=== PATIENT | female | born 1980 | race Caucasian/White ===

== ENCOUNTER 2019-10-07 16:00 | Outpatient (CLI) | payer OTHER, SELFPAY ==
[2019-10-07] VITALS (7 sets, daily range): BP systolic 0–138; BP diastolic 0–83; PULSE 62–75; RESP 17; TEMP 36.8; BMI 31.4
[2019-10-07 16:45] LABS: Nitrazine Paper, PH Negative
== END 2019-10-07 18:23 | disposition home or self-care (01) ==
LOC: OPOB 16:26 → OBGYN 18:12 → OPOB 10-08 07:46
PROVIDERS: Family Provider Family Medicine; Visit Provider Family Medicine
DX: O26.899 Other specified pregnancy related conditions, unspecified trimester (principal); Z3A.00 Weeks of gestation of pregnancy not specified; R10.9 Unspecified abdominal pain
CPT/HCPCS: 59025; 83986; 87081; 99211

== ENCOUNTER 2019-10-30 12:34 | Inpatient (IN) | payer OTHER, SELFPAY ==
[2019-10-30] VITALS (58 sets, daily range): BP systolic 0–153; BP diastolic 0–90; PULSE 57–101; RESP 18; TEMP 36.7–37.1; O2SAT 100; BMI 31.7
[2019-10-30] MEDS: oxytocin 30 UNIT/500 ML BAG IV (14:31)
[2019-10-30] MEDS: dextrose 5%-lactated ringers 1,000 ML 125 ML IV (14:31)
[2019-10-30 14:59] LABS: Basophils % 0.3 %; Eosinophils # 0.3 10^3/uL (0.0-0.8); Eosinophils % 2.8 %; Hematocrit 34.1 % (37.0-47.0); Hemoglobin 11.4 g/dL (11.5-15.3); Lymphocytes # 2.5 10^3/uL (0.8-4.8); Lymphocytes % 20.7 %; Mean Corpuscular HGB Conc 33.4 g/dL (30.0-36.0); Mean Corpuscular Hemoglobin 29.9 pg (28.0-34.0); Mean Corpuscular Volume 89.5 fL (81-99); Mean Platelet Volume 11.2 fL (7.4-10.4); Monocytes # 0.7 10^3/uL (0.2-0.9); Monocytes % 5.5 %; Neutrophils # 8.3 10^3/uL (1.8-7.7); Neutrophils % 69.8 %; Nucleated Red Blood Cells % 0 %; Platelet Count 213 10^3/cmm (130-400); Red Blood Count 3.81 10^6/uL (4.1-5.3); Red Cell Distribution Width 13.9 % (12.1-15.1); White Blood Count 11.9 10^3/uL (4.0-10.0)
[2019-10-30] MEDS: lactated ringers 1,000 ML 999 ML IV ×2 (17:18→18:41)
--- NOTE | 2019-10-30 18:02 | P.HP_ITS ---
Providers/Chief Complaint Admitting Physician: Adi Silverman MD Chief Complaint: Induction of labor History of Present Illness Suha Cobb is a 39 year old at 39.4 weeks gestation by LMP consistent with 9-week ultrasound. Her is complicated by advanced maternal age, excessive weight gain, hypothyroidism, increasing blood pressures. The patient presents to labor and delivery for induction of labor secondary to increasing blood pressures, history of quick deliveries and living far from [facility]. The patient is in her normal state of health and denies any fevers, cough, chest pain, nausea, vomiting, diarrhea, constipation, leakage of fluid, vaginal bleeding. Overall she feels well. PFSH Acute PFSH: Surgical History (Updated 10/30/19 @ 18:06 by Adi Silverman MD) History of repair of ACL Family History (Updated 10/30/19 @ 18:07 by Adi Silverman MD) Father Migraines Vitals/I&O/Wt Last Vital Signs Pulse 76 10/30/19 17:59 BP 153/87 10/30/19 17:59 Pulse Ox 100 10/30/19 17:59 Physical Exam Narrative: EXAM NARRATIVE: General: Alert and oriented x3 Eyes: Pupils equal round and reactive to light and accommodation Mouth: Mucous membranes moist, pharynx non-erythematous Cardiac: Regular rate and rhythm without murmurs Lungs: Clear to auscultation bilaterally without wheezes, crackles or rhonchi Abdomen: Soft, non-tender, fundus consistent with gestational age Extremities: Trace edema in the bilateral lower extremities Data : 10/30/19 14:30 A&P Additional A&P Information The patient is currently doing well at this time. Currently there is a category 1 heart tone tracing. Cervix was 3 cm dilated upon admission. She had no contractions upon admission. IV Pitocin will be started for induction of labor. A laboring epidural may be given if desired. All questions were answered. The patient and her are in agreement with the current plan of care. Attestations Medical Necessity Statement*: The patient will be here for greater than 2 midnights due to routine intrapartum and management of labor and delivery. Coding Level of Care Code Acute Chemical Checker for Fahad Rodriguez
--- NOTE | 2019-10-30 18:37 | P.ANES_ITS ---
Anesthesia Procedures Procedure/Date: 10/30/19 Epidural: Time Out Performed: Yes Consents Signed: Procedure Consent Consent: from patient, risks and benefits reviewed and patient agrees to proceed Lumbar Level: L3-L4 Epidural position: sitting Epidural procedure: sterile prep of area, 1% lidocaine to numb the area (5), 18 g needle, negative f or paresthesia passed, neg for paresthesia, test dose given, 1.5% xylocaine 1:200k epi (5), 0.2% Ropivacaine bolus ml (10), placed PCEA (5cc q10min x 3), no systemic response, sterile dressing applied, L.U.D. no apparent complications and 0.2% Ropiavacaine @ mls/hr (13) Additional Comments: called to OB for pt requesting Epidural, paper preop from 09/02/19 reviewed and no changes. Labs reviewed and pt epidural completed. bolused over 8 min. Additional fentanyl 100mcg given in the epidural. VSS throughout and Last BP is 102/56.
--- NOTE | 2019-10-30 18:48 | PC.NURSE ---
Addendum entered by Darya Pfeiffer RN 10/31/19 10:48: @1847 broke water artificially, clear fluid at this time. Original Note: at 181 pt received epidural and laid pt in the supine low semi fowlers position in bed with x2 rails up,@ 1824 pt started to feel nauseous,@ 183 entered the pt room, and asked for this nurse to empty pt bladder via straight catheter. while straight cathing pt @ 1840 a prolonged deceleration started, this nurse removed straight catheter, performed SVE, Oxygen applied to pt face via non-rebreather @ 10L/min, pitocin stopped , Epidural stopped. @ 1845 FHT returned to base line then and had a late deceleration @ 1848. @ 1856 broke water artificially,Clear fluid at this time.
--- NOTE | 2019-10-30 19:49 | PM.DELIVERY ---
 Delivery Note: Date of delivery: October 30, 2019 Pre-delivery diagnoses: 1. Intrauterine at 39.4 weeks gestation 2. Advanced maternal age 3. Excessive weight gain 4. Hypothyroidism 5. Borderline blood pressures Post-delivery diagnoses: 1. Intrauterine status post spontaneous vaginal delivery at 39.4 weeks gestation 2. Advanced maternal age 3. Excessive weight gain 4. Hypothyroidism 5. Borderline blood pressures 6. Delivery of healthy infant male weighing 9 pounds 3 ounces with Apgars of 9 and 10 7. Intact placenta with central umbilical cord insertion site Procedure: Spontaneous vaginal delivery Op report anesthesia: Epidural Delivering Physician: Adi Silverman MD Estimated blood loss (mL): 100 Findings: Suha Cobb is a 39 year old G4 now P3 status post spontaneous vaginal delivery at 39.4 weeks gestation by LMP consistent with 9-week ultrasound. Her was complicated by advanced maternal age, excessive weight gain, hypothyroidism, increasing blood pressures. Pre-Delivery Course: The patient presented to labor and delivery for induction of labor secondary to increasing blood pressures, history of quick deliveries and living far from the [facility]. The patient was started on IV Pitocin in the early afternoon of 10/30/2019. She was 3 cm upon admission. The patient contracted well and responded to IV Pitocin well. She received a laboring epidural. Shortly after the epidural, there was a prolonged heart tone deceleration. The IV Pitocin was turned off and position changes were done, IV fluid bolus was given and oxygen was placed. heart tones did recover with these changes and AROM was performed at 1847 on 10/30/2019. Abundant clear fluid was noted. The patient was complete at 1853 Delivery: The patient began pushing at 1856 on 10/30/2019. The patient pushed well and the infant delivered in the OA position at 1920 on 10/30/2019. The left shoulder was the anterior shoulder and it delivered with ease. The rest of the delivered without complication. Terminal meconium was noted. The 's mouth and nose were bulb suctioned by myself. The was vigorous at . There was no nuchal cord noted. The infant was placed on the mother's chest where the nurses were waiting to care for him. The cord was clamped by myself after approximately 1 minute and cut by the infant's father. Cord blood was obtained. The cord was then drained of blood and the uterus was massaged and the placenta delivered without complication at 1924. The placenta was noted to be intact and the umbilical cord was central in insertion. The cervix was inspected and no lacerations were noted. The vaginal wall was inspected and an abrasion was noted on the right vaginal wall. No sutures were needed. The uterus was noted to be firm and midline. The patient has little bleeding at this time. Currently both the mother and are doing very well. Coding Level of Care Code Acute Data Operations Leader for Fahad Rodriguez
[2019-10-30] MEDS: benzocaine-menthol 78 gm Canister 1 SPRAY TOPICAL (22:40)
--- NOTE | 2019-10-30 23:27 | PC.NURSE ---
patient ambulated to pp room 205-2 at this time, no c/o dizziness, lightheadedness, or nausea.
[2019-10-31] VITALS (8 sets, daily range): BP systolic 102–133; BP diastolic 63–77; PULSE 64–90; RESP 15–18; TEMP 36.5–36.8
[2019-10-31] MEDS: HYDROcodone-acetaminophen 5-325 mg Tablet PO (06:24)
[2019-10-31 08:57] LABS: Hematocrit 33.9 % (37.0-47.0); Hemoglobin 11.1 g/dL (11.5-15.3); Mean Corpuscular HGB Conc 32.7 g/dL (30.0-36.0); Mean Corpuscular Hemoglobin 29.8 pg (28.0-34.0); Mean Corpuscular Volume 90.9 fL (81-99); Platelet Count 179 10^3/cmm (130-400); Red Blood Count 3.73 10^6/uL (4.1-5.3); White Blood Count 13.2 10^3/uL (4.0-10.0)
[2019-10-31] MEDS: prenatal vitamin Capsule 1 CAP PO (09:15)
[2019-10-31] MEDS: docusate sodium 100 mg Capsule PO (09:15)
[2019-10-31] MEDS: lanolin oint 7 gm 1 APPLIC TOPICAL (11:12)
--- NOTE | 2019-10-31 12:46 | ANE.PACU2 ---
 Inpatient post-anesthesia follow up: Airway intact: Yes Vital signs: Temperature 98.0 F Pulse Rate 69 Respiratory Rate 16 Blood Pressure 121/75 Pulse Oximetry 100 Oxygen Delivery Me thod Room Air Oxygen Flow Rate Fraction of Inspir ed Oxygen Hydration adequate: Yes Nausea and vomiting: No Pain level: 1 Mental status: Baseline Additional Comments: no headaches, no signs of infection no lower extremity weakness
[2019-10-31] MEDS: acetaminophen 325 mg Tablet 650 MG PO (13:42)
--- NOTE | 2019-10-31 18:13 | PM.DCS ---
Discharge Providers Date of Admission: 10/30/19 12:34 Date of Discharge: October 31, 2019 Attending Provider at Admission: Adi Silverman MD Attending Provider at Discharge: Adi Silverman MD Diagnoses at Discharge Discharge Diagnosis (1) Intrauterine : Status: Acute Other Information Additional DC diagnoses/information: 1. Intrauterine status post spontaneous vaginal delivery at 39.4 weeks gestation 2. Advanced maternal age 3. Excessive weight gain 4. Hypothyroidism 5. Borderline blood pressures 6. Delivery of healthy infant male weighing 9 pounds 3 ounces with Apgars of 9 and 10 Reason for Visit Reason for Visit: Reason For Visit: Induction of labor Hospital Course Hospital Course: The patient presented to labor and delivery for induction of labor secondary to increasing blood pressures, history of quick deliveries and living far from [facility]. The patient was started on IV Pitocin in the early afternoon of 10/30/2019. She was 3 cm upon admission. The patient contracted well and responded to IV Pitocin well. She received a laboring epidural. Shortly after the epidural, there was a prolonged heart tone deceleration. The IV Pitocin was turned off and position changes were done, IV fluid bolus was given and oxygen was placed. heart tones did recover with these changes and AROM was performed at 1847 on 10/30/2019. Abundant clear fluid was noted. The patient was complete at 1853. Delivery: The patient began pushing at 1856 on 10/30/2019. The patient pushed well and the delivered in the OA position at 1920 on 10/30/2019. The left shoulder was the anterior shoulder and it delivered with ease. The rest of the delivered without complication. Terminal meconium was noted. The 's mouth and nose were bulb suctioned by myself. The was vigorous at . There was no nuchal cord noted. The infant was placed on the mother's chest where the nurses were waiting to care for him. The cord was clamped by myself after approximately 1 minute and cut by the 's father. Cord blood was obtained. The cord was then drained of blood and the uterus was massaged and the placenta delivered without complication at 1924. The placenta was noted to be intact and the umbilical cord was central in insertion. The cervix was inspected and no lacerations were noted. The vaginal wall was inspected and an abrasion was noted on the right vaginal wall. No sutures were needed. The uterus was noted to be firm and midline. The patient has little bleeding at this time. : The patient is done well and her bleeding is decreasing well. Her pain is well controlled. She is ambulating, voiding, passing gas and tolerating food by mouth. The patient request to be discharged home this evening. She is stable for discharge. All questions were answered. Routine care instructions were given. Physical Exam Narrative: EXAM NARRATIVE: General: Alert and oriented x3 Cardiac: Regular rate and rhythm without murmurs Lungs: Clear to auscultation bilaterally without wheezes, crackles or rhonchi Abdomen: Soft, no significant tenderness, fundus is firm and 3 cm below the umbilicus. Extremities: Trace edema in the bilateral lower extremities Discharge Data Data Completed and Pending: Labs from last 24 hours 10/31/19 08:26 WBC 13.2 H RBC 3.73 L Hgb 11.1 L Hct 33.9 L MCV 90.9 MCH 29.8 MCHC 32.7 RDW 14.0 Plt Count 179 MPV 11.0 H Vitals: Last Vital Signs Temp 97.7 F 10/31/19 16:05 Pulse 64 10/31/19 16:05 Resp 15 10/31/19 16:05 BP 133/77 10/31/19 16:05 Pulse Ox 100 10/30/19 18:09 Discharge Plan Discharge Patient Disposition: Home, Self-Care Condition: Good Prescriptions: New hydrocodone-acetaminophen 5-325 mg Tablet 1 tab PO Q6H PRN (Reason: Moderate To Severe Pain) Qty: 10 RF: 0 ibuprofen 800 mg Tablet 800 mg PO TID Qty: 60 RF: 0 Continued levothyroxine 50 mcg Tablet 50 mcg PO DAILY RF: 0 PNV cmb#95-ferrous fumarate-FA [] 28 mg iron- 800 mcg Tablet 1 tab PO DAILY RF: 0 Discharge Orders: Discharge Order (Routine); Ordered 10/31/19 Ordered By: Adi Silverman Referrals: Adi Silverman MD [Physician] - 6 Weeks Discharge Diet: Regular Discharge Activity: Increase activity as tolerated Activity Restrictions/Additional Instructions: Nothing per vagina for 6 weeks. If you have any concerns prior to your appointment, please call [facility] for sooner appointment. Discharge Attestations Time Spent in Discharge Care*: greater than 30 min Quality Metrics Clinical Quality Measures During this hospital stay, did patient experience: None Coding Level of Care Code Acute Journeyman Pipefitter for Chg Fwd Diagnoses Intrauterine Z34.90
== END 2019-10-31 21:15 | disposition home or self-care (01) | DRG 807 ==
PROVIDERS: Admitting Provider Family Medicine; Family Provider Family Medicine; Visit Provider Family Medicine
DX: O16.4 Unspecified maternal hypertension, complicating childbirth (principal); Z37.0 Single live birth; Z3A.39 39 weeks gestation of pregnancy; O76 Abnormality in fetal heart rate and rhythm complicating labor and delivery; O99.284 Endocrine, nutritional and metabolic diseases complicating childbirth; E03.9 Hypothyroidism, unspecified
CPT/HCPCS: 12345; 36415; 51702; 59409; 85025; 85027; 96374; 98960; J2795; J3010

== ENCOUNTER 2020-06-15 11:07 | Outpatient (CLI) | payer OTHER, SELFPAY ==
--- NOTE | 2020-06-15 11:15 | XR_ITS ---
WS: [id number] WRIST LEFT TECHNIQUE: 3 views of the left wrist CLINICAL INFORMATION: LEFT HAND PAIN COMPARISON: None. FINDINGS: Normal radiocarpal joint. Scaphoid is normal in appearance. No evidence of radiocarpal dislocation. D istal radius and ulna are normal in appearance. XR/XR wrist LT min 3V* [id number] IMPRESSION: Normal left wrist.
--- NOTE | 2020-06-15 11:15 | XR_ITS ---
WS: [id number] HAND LEFT TECHNIQUE: 3 views of the left hand CLINICAL INFORMATION: LEFT HAND PAIN COMPARISON: None. FINDINGS: Normal metacarpals. Normal MCP joint. Metacarpal heads are normal in appearance. Normal PIP and DIP j oints. No evidence of acute fracture or dislocation. Radiocarpal joint: Normal. Carpal bones: Normal. XR/XR hand LT min 3V* [id number] IMPRESSION: Normal left hand.
== END 2020-06-15 11:08 | disposition home or self-care (01) ==
LOC: WPI 11:12
PROVIDERS: Family Provider Family Medicine; Visit Provider Family Medicine
DX: M79.642 Pain in left hand (principal)
CPT/HCPCS: 73110; 73130

== ENCOUNTER 2021-03-30 13:25 | Outpatient (CLI) | payer OTHER, SELFPAY ==
--- NOTE | 2021-03-30 13:30 | US_ITS ---
WS: [id number] ULTRASOUND EARLY TECHNIQUE: Transabdominal sonography of the pelvis was performed. Followed by transvaginal sonography to better evaluate the uterus and ovaries. CLINICAL INFORMATION: DATING LMP: 01/21/2021 Beta hCG: Unknown. COMPARISON: None. FINDINGS: Cervix is long and closed measuring 4.1 cm UTERUS AND GESTATIONAL SAC Intrauterine gestations: Single intrauterine with pole measuring 2.7 cm. Estimated gestational age: 9w3d Yolk sac: 0.6 cm. Waterman rump length (CRL): 2.7 cm. heart motion: 171 BPM. Subchorionic hemorrhage: None. OVARIES Right ovary: Normal. Left ovary: Normal. FREE FLUID None. US/US OB <= 14 weeks fetus [id number] IMPRESSION: 1. Single live intrauterine with crown-rump length 2.7 cm. 2. Estimated gestational age; 9w3d with estimated delivery October 30, 2021 3. Cervix is long and closed measuring 4.1 cm 4. Both ovaries are normal in appearance. No adnexal masses. 5. No free fluid in the cul-de-sac.
== END 2021-03-30 13:26 | disposition home or self-care (01) ==
PROVIDERS: PCP Family Medicine; Visit Provider Family Medicine
DX: Z34.81 Encounter for supervision of other normal pregnancy, first trimester; Z3A.09 9 weeks gestation of pregnancy
CPT/HCPCS: 76801

== ENCOUNTER 2021-06-08 15:25 | Outpatient (CLI) | payer OTHER, SELFPAY ==
--- NOTE | 2021-06-08 | US_ITS ---
WS: [id number] OBSTETRICAL ULTRASOUND COMPLETE HISTORY: ANATOMY SCAN COMPARISON: 03/30/2021 Single intrauterine gestation in breech presentation. Cervix is Closed and normal length. Cervical length is 4.5 cm. Normal amount of amniotic fluid surrounds the fetus. Placenta: Anterior, placenta ends less than 2 cm of the internal cervical os. There was a Andrews Hi cks present set did not resolve during the examination. If this Andrews Pfeiffer that resolved the place nta may not have been low lying. Placenta grade 1 Heart: 153 BPM. Four chambers are identified. RIGHT and LEFT outflow tracts are limited but within no rmal limits. Anatomy: Intracranial structures and spine are normal. kidneys, stomach and urinary bladd er are unremarkable. Abdominal wall, three-vessel cord and cord insertion site are normal. 4 extremities are present. profile: Unremarkable. Gender: Female. measurements: BPD = 4.5 cm = 19w4d HC = 17.2 cm = 19w5d AC = 14.0 cm = 19w3d FL = 3.4 cm = 20w5d EFW: 323 g. Biometry is internally concordant. AGA by ultrasound: 19w6d VIOLETA by ultrasound: 10/27/2021 Compared to the prior ultrasound there is been appropriate interval growth. US/US OB >= 14 weeks fetus [id number] IMPRESSION: 1. Single intrauterine gestation of 19w6d with an VIOLETA of 10/27/2021. Appropria te growth since the prior ultrasound from 03/30/2021. 2. Unremarkable screening survey of anatomy. 3. Anterior low-lying placenta. Recommend follow-up focused ultrasound evaluat ion during late second trimester.
== END 2021-06-08 15:26 | disposition home or self-care (01) ==
LOC: RAD 15:27
PROVIDERS: PCP Family Medicine; Visit Provider Family Medicine
DX: Z34.82 Encounter for supervision of other normal pregnancy, second trimester; Z3A.19 19 weeks gestation of pregnancy
CPT/HCPCS: 76805

== ENCOUNTER 2021-08-23 09:51 | Outpatient (CLI) | payer OTHER, SELFPAY ==
--- NOTE | 2021-08-23 10:01 | US_ITS ---
WS: [id number] ULTRASOUND OB LIMITED TECHNIQUE: Limited ultrasound examination of the fetus. CLINICAL INFORMATION: LOW LYING PLACENTA COMPARISON: None. FINDINGS: Cervix measures 5.3 cm Single interuterine gestation. No evidence of placenta previa seen today. Normal cervix[place] US/[place] [id number] IMPRESSION: No evidence of placenta previa today.
== END 2021-08-23 09:52 | disposition home or self-care (01) ==
PROVIDERS: PCP Family Medicine; Visit Provider Family Medicine
DX: O44.00 Complete placenta previa NOS or without hemorrhage, unspecified trimester (principal)
CPT/HCPCS: 76816

== ENCOUNTER 2021-10-22 08:06 | Inpatient (IN) | payer OTHER, SELFPAY ==
[2021-10-22] VITALS (57 sets, daily range): BP systolic 102–154; BP diastolic 53–86; PULSE 63–190; RESP 16–18; TEMP 36.8–37.4; O2SAT 81–100; BMI 32.1
--- NOTE | 2021-10-22 06:43 | P.HP_ITS ---
Providers/Chief Complaint Admitting Physician: Adi Silverman MD Primary Care Provider: Taz Osborne DO Chief Complaint: INDUCTION OF LABOR History of Present Illness Suha Cobb is a 41 year old at 39.1 weeks gestation by LMP consistent with 9-week ultrasound. Her is complicated by advanced maternal age, hypothyroidism on levothyroxine, elevated 1 hour GTT with normal 3-hour GTT, COVID-19 infection in September 2021, history of large for gestational age infant. The patient is doing well today. She presents for a scheduled elective induction of labor secondary to history of large for gestational age infant. The patient feels well at this time. She denies any fevers, chest pains, cough, shortness of breath, nausea, vomiting, diarrhea, constipation, dysuria. She denies any leakage of fluid, vaginal bleeding. She has had some sporadic contractions. Overall she feels well. Medications/Allergies Home Medications Medication Instructions Recorded Confirmed Last Taken Type levothyroxine 50 mcg tablet 50 mcg PO DAILY 10/07/19 10/31/19 10/07/19 06:15 History vit no.95-ferrous 1 tab PO DAILY 10/07/19 10/31/19 10/06/19 20:30 History fumarate 28 mg-folic acid 800 mcg tablet () Allergies Allergy/AdvReac Type Severity Reaction Status Date / Time No Known Allergies Allergy Verified 10/22/21 06:46 PFSH Acute PFSH: Surgical History History of repair of ACL Family History Father No problems noted. Grandmother Diabetes maternal Heart disease maternal Grandfather Diabetes paternal Hypertension maternal Heart disease paternal Denies family history of Colon cancer Ovarian cancer Hyperlipidemia Psychiatric illness Breast cancer Uterine cancer Thyroid condition Social History (Updated 10/22/21 @ 06:48 by Adi Silverman MD) Smoking and tobacco status: never smoked Alcohol intake: never Substance/Drug Use: never Physical Exam Narrative: General: Alert and oriented x3 Eyes: Pupils equal round and reactive to light and accommodation Mouth: Mucous membranes moist, pharynx non-erythematous Cardiac: Regular rate and rhythm without murmurs Lungs: Clear to auscultation bilaterally without wheezes, crackles or rhonchi Abdomen: Soft, non-tender, fundus consistent with gestational age Extremities: Trace edema in the bilateral lower extremities A&P Assessment and plan (1) Intrauterine : Status: Acute (2) Hypothyroidism: Status: Acute Plan The patient is doing well at this time. We will proceed with induction of labor. We will plan to use IV Pitocin for induction. The patient may have a laboring epidural when she gets to be 3 cm. The patient is GBS negative. She had COVID-19 in September 2021. heart tones are currently in the mid 130s with moderate variability and good accelerations. All questions were answered. Proceed with induction of labor. Attestations Medical Necessity Statement*: The patient will be here for greater than 2 midnights due to routine intrapartum and management of labor and delivery. Coding Level of Care Code Acute Hospitalist Physician for Chg Fwd Diagnoses Intrauterine Z34.90 Hypothyroidism E03.9
[2021-10-22] MEDS: dextrose 5%-lactated ringers 1,000 ML 125 ML IV ×2 (07:11→16:42)
[2021-10-22] MEDS: oxytocin 30 UNIT/500 ML BAG IV (07:11)
[2021-10-22 07:39] LABS: Basophils % 0.4 %; Eosinophils # 0.3 10^3/uL (0.0-0.8); Eosinophils % 3.5 %; Hematocrit 33.5 % (37.0-47.0); Hemoglobin 10.8 g/dL (11.5-15.3); Lymphocytes # 2.2 10^3/uL (0.8-4.8); Lymphocytes % 22.6 %; Mean Corpuscular HGB Conc 32.2 g/dL (30.0-36.0); Mean Corpuscular Hemoglobin 28.3 pg (28.0-34.0); Mean Corpuscular Volume 87.9 fl (81-99); Monocytes # 0.7 10^3/uL (0.2-0.9); Monocytes % 6.9 %; Neutrophils # 6.27 10^3/uL (1.8-7.7); Neutrophils % 65.6 %; Nucleated Red Blood Cells % 0 %; Platelet Count 198 10^3/cmm (130-400); Red Blood Count 3.81 10^6/uL (4.1-5.3); Red Cell Distribution Width 14.5 % (12.1-15.1); White Blood Count 9.6 10^3/uL (4.0-10.0)
[2021-10-22] MEDS: lactated ringers 1,000 ML 999 ML IV ×2 (11:08→12:11)
--- NOTE | 2021-10-22 12:05 | P.ANESASSM_ITS ---
Pre-Anesthetic Assessment Height/Weight: Height 1.75 m Weight 98.883 kg Pulse Resp BP 80 16 123/75 10/22/21 11:55 10/22/21 06:39 10/22/21 11:55 Was Beta Mello taken within 24 hours: N/A Was Clonidine taken within 24 hours: N/A Social No alcohol and No tobacco Exam alert, oriented x 3, clear to auscultation bilaterally and regular rate & rhythm Airway Submandibular: within normal limits Cervical ROM: within normal limits Mallampati: Class II Dentition: full History/ROS No significant history except as noted and No significant complaints Pulmonary None reported CV/HEM None reported None reported Hepatic None reported GI None reported Metabolic Thyroid Disease [facility] [place]/sk None reported Neuropsych None reported Anesthetic Plan ASA status: 2 Anesthesia: Anesthesia Evaluation, Eval. for regional block and Regional (specify below) (Labor epidural) Risk of > 500 ml blood loss (7ml/kg in children): No Medications/Allergies Home Medications Medication Instructions Recorded Confirmed Last Taken Type levothyroxine 50 mcg tablet 50 mcg PO DAILY 10/07/19 10/22/21 10/22/21 06:30 History vit no.95-ferrous 1 tab PO DAILY 10/07/19 10/22/21 10/22/21 06:30 History fumarate 28 mg-folic acid 800 mcg tablet () Allergies Allergy/AdvReac Type Severity Reaction Status Date / Time No Known Allergies Allergy Verified 10/22/21 06:46 Current Medications Generic Name Dose Route Start Last Admin Trade Name Freq PRN Reason Stop Dose Admin Oxytocin 30 unit in 500 mls @ 1 mls/hr 10/22/21 06:45 10/22/21 10:00 Pitocin IV 20 milliunit/min .Q24H RICK 20 mls/hr Titration Protocol 1 MILLIUNIT/MIN Dextrose/Lactated Ringer's 1,000 mls @ 125 mls/hr 10/22/21 06:45 10/22/21 11:25 Dextrose 5%-Lactated Ringers IV 0 mls/hr .Q8H RICK Infusion Lactated Ringer's 1,000 mls @ 999 mls/hr 10/22/21 11:04 10/22/21 11:08 Lactated Ringers IV 999 mls/hr .Q1H1M PRN Administration See label comments PFSH Anesthesia Surgical History History of repair of ACL Family History Father No problems noted. Grandmother Diabetes maternal Heart disease maternal Grandfather Diabetes paternal Hypertension maternal Heart disease paternal Denies family history of Colon cancer Ovarian cancer Hyperlipidemia Psychiatric illness Breast cancer Uterine cancer Thyroid condition Social History Smoking and tobacco status: never smoked Alcohol intake: never Substance/Drug Use: never Female Reproductive History : 6 Data Anesthesia : 10/22/21 07:05 Short CBC 10/22/21 Range/Units 07:05 WBC 9.6 (4.0-10.0) 10^3/uL Hgb 10.8 L (11.5-15.3) g/dL Hct 33.5 L (37.0-47.0) % MCV 87.9 (81-99) fl Plt Count 198 (130-400) 10^3/cmm Neut % (Auto) 65.6 % Neut # (Auto) 6.27 (1.8-7.7) 10^3/uL Cardiac Studies: No Data to Display
--- NOTE | 2021-10-22 13:31 | ANES.PROC ---
Anesthesia Procedures Procedure/Date: 10/22/21 Epidural: Time Out Performed: Yes ([id number]) Consents Signed: Procedure Consent Consent: from patient Lumbar Level: L4-L5 Epidural position: sitting Epidural procedure: sterile prep of area, 1% lidocaine to numb the area, 18 g needle, negative for paresthesia passed, neg for paresthesia, test dose given, 1.5% xylocaine 1:200k epi (3 ml), placed PCEA, no systemic response, sterile dressing applied and 0.2% Ropiavacaine @ mls/hr (13) Additional Comments: Cap, mask donned by all staff in room. Patient sat up. Patient prepped and draped in usual sterile fashion with Chlorprep. 1% lidocaine skin wheel. Tuohy inserted with stylet. Ligament engaged. Using YUE w/ saline technique epidural space found, catheter threaded. Negative aspiration. Test dose 1.5% lidocaine with epinenephrine 1:200,000 total 3 cc. No response. Sterile dressing. Infusion started. Loss at 6 , catheter at 11 . Tolerated well, 1 attempted, good block.
--- NOTE | 2021-10-22 16:03 | PM.DELIVERY ---
Delivery Note: Date of delivery: October 22, 2021 Pre-delivery diagnoses: 1. Intrauterine at 39.1 weeks gestation 2. Hypothyroidism 3. Advanced maternal age 4. Elevated 1 hour GTT with normal 3-hour GTT 5. COVID-19 infection in September 2021 6. History of large for gestational age infant Post-delivery diagnoses: 1. Intrauterine status post spontaneous vaginal delivery at 39.1 weeks gestation 2. Hypothyroidism 3. Advanced maternal age 4. Elevated 1 hour GTT with normal 3-hour GTT 5. COVID-19 infection in September 2021 6. History of large for gestational age infant 7. Delivery of healthy infant female weighing 7 pounds 9 ounces with Apgars of 9 and 9 Procedure: Spontaneous vaginal delivery Delivering Physician: Adi Silverman MD Estimated blood loss (mL): 250 Findings: Suha Cobb is a 41 year old G6 now P4 status post spontaneous vaginal delivery at 39.1 weeks gestation by LMP consistent with 9-week ultrasound.? Her was complicated by advanced maternal age, hypothyroidism on levothyroxine, elevated 1 hour GTT with normal 3-hour GTT, COVID-19 infection in September 2021, history of large for gestational age . 1. Healthy infant female weighing 7 pounds 9 ounces with Apgars of 9 and 9 2. Intact placenta with central umbilical cord insertion site Pre-Delivery Course: The patient was admitted to labor and delivery triage for a scheduled induction of labor at 39.1 weeks gestation on the morning of 10/22/2021. This was an elective induction due to history of large for gestational age infant. The patient was 1 to 2 cm dilated upon admission and was started on IV Pitocin. She made good change throughout the day. heart tones were in the mid 140s with moderate variability and good accelerations. A arrhythmia was noted that was intermittent and consistent with an ectopic beat every 5 to 30 seconds. heart tones did not progress into the 200s or 80s for any consistent period of time. The patient received a laboring epidural when she was 3 cm. The patient continued to contract and SROM took place at 1405 on 10/22/2021. The patient continued to make change and was complete by 1526 on 10/22/2021. Delivery: The patient began pushing at 1533 on 10/22/2021. The patient pushed well and the delivered in the OA position at 1536 on 10/22/2021. There was no nuchal cord. The right shoulder was the anterior shoulder and it delivered with ease. The rest the infant delivered quickly. The infant's mouth and nose were bulb suctioned by myself and the infant was placed on the mother's chest where the nurses were waiting to care for her. The cord was clamped by myself after approximately 1 minute. The cord was cut by the infant's father. A cord blood sample was obtained and the cord was drained of blood. Traction was placed on the umbilical cord and uterine massage was carried out. The placenta delivered without complication at 1540 on 10/22/2021. The placenta was noted to be intact with a central umbilical cord insertion site. The uterus was massaged and the patient had very little bleeding. The cervix was inspected and there were no lacerations. The vaginal wall was inspected and there were no lacerations. Currently both the mother and infant are doing well. History History History 6 Term 4 Miscarriages/Ectopic 2 0 Living Children 4 A&P Assessment and plan (1) Intrauterine : Status: Acute (2) Spontaneous vaginal delivery: Status: Acute Plan We will plan for routine care at this time. Coding Level of Care Code Acute Grab Driver for Chg Michael Diagnoses Intrauterine Z34.90 Spontaneous vaginal delivery O80
[2021-10-22] MEDS: oxytocin 30 UNIT/500 ML BAG 600 UNIT IV (16:25)
--- NOTE | 2021-10-22 17:24 | PC.NURSE ---
PATIENT VOLUNTEERED TO DONATE PLACENTA TO [facility]. FOCUSING MACHINE OPERATOR FOR DONATION NOTIFIED.
[2021-10-22] MEDS: docusate sodium 100 mg Capsule PO (18:22)
[2021-10-22] MEDS: benzocaine-menthol 78 gm Canister 1 SPRAY TOPICAL (18:33)
[2021-10-22] MEDS: lanolin oint 7 gm 1 APPLIC TOPICAL (18:34)
[2021-10-22] MEDS: ibuprofen 800 mg tablet PO (21:33)
[2021-10-22] MEDS: HYDROcodone-acetaminophen 5-325 mg Tablet PO (23:35)
[2021-10-23 01:33] VITALS: BP 121/75; PULSE 79; RESP 16; TEMP 36.7; O2SAT 97
[2021-10-23 03:39] LABS: Hematocrit 30.2 % (37.0-47.0); Hemoglobin 9.9 g/dL (11.5-15.3); Mean Corpuscular HGB Conc 32.8 g/dL (30.0-36.0); Mean Corpuscular Hemoglobin 28.7 pg (28.0-34.0); Mean Corpuscular Volume 87.5 fl (81-99); Mean Platelet Volume 10.9 fL (7.4-10.4); Platelet Count 188 10^3/cmm (130-400); Red Blood Count 3.45 10^6/uL (4.1-5.3); Red Cell Distribution Width 14.6 % (12.1-15.1); White Blood Count 13.4 10^3/uL (4.0-10.0)
[2021-10-23] MEDS: HYDROcodone-acetaminophen 5-325 mg Tablet PO (05:20)
[2021-10-23 05:27] VITALS: BP 125/83; PULSE 79; RESP 15
[2021-10-23] MEDS: prenatal vitamin Capsule 1 CAP PO (09:11)
[2021-10-23] MEDS: ibuprofen 800 mg tablet PO ×2 (09:11→15:36)
[2021-10-23] MEDS: docusate sodium 100 mg Capsule PO (09:11)
[2021-10-23 09:13] VITALS: BP 118/76; PULSE 79; RESP 16; TEMP 36.3
--- NOTE | 2021-10-23 11:07 | P.DS_ITS ---
Discharge Providers Date of Admission: 10/22/21 08:06 Date of Discharge: October 23, 2021 Attending Provider at Admission: Adi Silverman MD Attending Provider at Discharge: Adi Silverman MD Primary Care Provider: Taz Osborne DO Diagnoses at Discharge Discharge Diagnosis (1) Intrauterine : Status: Acute (2) Spontaneous vaginal delivery: Status: Acute Other Information Additional DC diagnoses/information: 1.? Intrauterine status post spontaneous vaginal delivery at 39.1 weeks gestation 2.? Hypothyroidism 3.? Advanced maternal age 4.? Elevated 1 hour GTT with normal 3-hour GTT 5.? COVID-19 infection in September 2021 6.? History of large for gestational age infant 7.? Delivery of healthy female weighing 7 pounds 9 ounces with Apgars of 9 and 9 Reason for Visit Reason for Visit: INDUCTION OF LABOR Hospital Course Hospital Course Suha Cobb is a 41 year old G6 now P4 status post spontaneous vaginal delivery at 39.1 weeks gestation by LMP consistent with 9-week ultrasound.? Her was complicated by advanced maternal age, hypothyroidism on levothyroxine, elevated 1 hour GTT with normal 3-hour GTT, COVID-19 infection in September 2021, history of large for gestational age . The patient was admitted to labor and delivery triage for a scheduled induction of labor at 39.1 weeks gestation on the morning of 10/22/2021.? This was an elective induction due to history of large for gestational age .? The patient was 1 to 2 cm dilated upon admission and was started on IV Pitocin.? She made good change throughout the day.? heart tones were in the mid 140s with moderate variability and good accelerations.? A arrhythmia was noted that was intermittent and consistent with an ectopic beat every 5 to 30 seconds.? heart tones did not progress into the 200s or 80s for any consistent period of time.? The patient received a laboring epidural when she was 3 cm.? The patient continued to contract and SROM took place at 1405 on 10/22/2021.? The patient continued to make change and was complete by 1526 on 10/22/2021. The patient began pushing at 1533 on 10/22/2021.? The patient pushed well and the infant delivered in the OA position at 1536 on 10/22/2021.? There was no nuchal cord.? The right shoulder was the anterior shoulder and it delivered with ease.? The rest the infant delivered quickly.? The infant's mouth and nose were bulb suctioned by myself and the infant was placed on the mother's chest where the nurses were waiting to care for her.? The cord was clamped by myself after approximately 1 minute.? The cord was cut by the infant's father.? A cord blood sample was obtained and the cord was drained of blood.? Traction was placed on the umbilical cord and uterine massage was carried out.? The placenta delivered without complication at 1540 on 10/22/2021.? The placenta was noted to be intact with a central umbilical cord insertion site.? The uterus was massaged and the patient had very little bleeding.? The cervix was inspected and there were no lacerations.? The vaginal wall was inspected and there were no lacerations.? Currently both the mother and infant are doing well. the patient is doing well. She has had no complications. Her bleeding is decreasing well. She is ambulating, voiding, passing gas and tolerating food by mouth. Routine discharge instructions were discussed. The patient and her are in agreement with discharge home at this time. All questions were answered. Plan for discharge home this afternoon. Physical Exam Narrative: General: Alert and oriented x3 Cardiac: Regular rate and rhythm without murmurs Lungs: Clear to auscultation bilaterally without wheezes, crackles or rhonchi Abdomen: Soft, mild tenderness over uterus. The uterus is firm and 2 cm below the umbilicus. Extremities: Trace edema in the bilateral lower extremities Urinary Catheter Management: Vega: Cath Placed During This Visit: yes, but has since been removed by the nurse Reason for Continuing Indwelling Catheter: Decision to DC Catheter Urinary Catheter Date of Insertion: 10/22/21 Urinary Catheter Time of Insertion: 13:15 Date Urinary Catheter Removed: 10/22/21 Time Urinary Catheter Discontinued: 15:27 Discharge Data Studies Completed and Pending Laboratory Results WBC 13.4 10^3/uL (4.0-10.0) H 10/23/21 03:23 RBC 3.45 10^6/uL (4.1-5.3) L 10/23/21 03:23 Hgb 9.9 g/dL (11.5-15.3) L 10/23/21 03:23 Hct 30.2 % (37.0-47.0) L 10/23/21 03:23 MCV 87.5 fl (81-99) 10/23/21 03:23 MCH 28.7 pg (28.0-34.0) 10/23/21 03:23 MCHC 32.8 g/dL (30.0-36.0) 10/23/21 03:23 RDW 14.6 % (12.1-15.1) 10/23/21 03:23 Plt Count 188 10^3/cmm (130-400) 10/23/21 03:23 MPV 10.9 fL (7.4-10.4) H 10/23/21 03:23 Neut % (Auto) 65.6 % 10/22/21 07:05 Lymph % (Auto) 22.6 % 10/22/21 07:05 Antelope % (Auto) 6.9 % 10/22/21 07:05 Eos % (Auto) 3.5 % 10/22/21 07:05 Baso % (Auto) 0.4 % 10/22/21 07:05 Neut # (Auto) 6.27 10^3/uL (1.8-7.7) 10/22/21 07:05 Lymph # (Auto) 2.2 10^3/uL (0.8-4.8) 10/22/21 07:05 Antelope # (Auto) 0.7 10^3/uL (0.2-0.9) 10/22/21 07:05 Eos # (Auto) 0.3 10^3/uL (0.0-0.8) 10/22/21 07:05 Baso # (Auto) 0.0 10^3/uL (0.0-0.1) 10/22/21 07:05 Nucleated RBC % (auto) 0 % 10/22/21 07:05 Nucleated RBCs # 0.0 /100WBC 10/22/21 07:05 Vitals Last Vital Signs Temp 97.4 F L 10/23/21 09:13 Pulse 79 10/23/21 09:13 Resp 16 10/23/21 09:13 BP 118/76 10/23/21 09:13 Pulse Ox 97 10/23/21 01:33 Discharge Plan Discharge Patient Disposition: Home Condition: Good Prescriptions: New ibuprofen 800 mg Tablet 800 mg PO TID Qty: 60 0RF ferrous sulfate 325 mg (65 mg iron) tablet 325 mg PO BID Qty: 30 0RF Continued levothyroxine 50 mcg Tablet 50 mcg PO DAILY 0RF PNV cmb#[id number]-ferrous fumarate-FA [] 28 mg iron- 800 mcg Tablet 1 tab PO DAILY 0RF Discharge Orders: Discharge Order (Routine); Ordered 10/23/21 Ordered By: Adi Silverman Referrals: Lul Blank DO [Staff Physician] - 2 weeks (To discuss IUD placement) Adi Silverman MD [Physician] - 6 Weeks Discharge Diet: Regular Discharge Activity: Increase activity as tolerated and Limit activity as instructed Patient Instructions: Depression (DC), Bleeding (DC), Preeclampsia and Eclampsia After Delivery (GEN), OB Discharge Report, OB Food/Drug Interaction Guide, Opioid Safety, OB Home Care, OB Vaginal Deliveries Activity Restrictions/Additional Instructions: Nothing per vagina for 6 weeks. Discharge Attestations Time Spent in Discharge Care*: greater than 30 min Quality Metrics Clinical Quality Measures [ No reported AMI, CVA or VTE this stay] Coding Level of Care Code Acute Chg FW DC note Diagnoses Intrauterine Z34.90 Spontaneous vaginal delivery O80
[2021-10-23 16:58] VITALS: BP 122/80; PULSE 76; RESP 17; TEMP 36.7; O2SAT 98
[2021-10-23 17:15] VITALS: BP 122/80; PULSE 76; RESP 17; TEMP 36.7; O2SAT 98
--- NOTE | 2021-10-24 08:30 | ANE.PACU2 ---
Inpatient post-anesthesia follow up: Airway intact: Yes Vital signs: Temperature 98.0 F Pulse Rate 76 Respiratory Rate 17 Blood Pressure 122/80 Pulse Oximetry 98 Oxygen Delivery Me thod Room Air Oxygen Flow Rate Fraction of Inspir ed Oxygen Hydration adequate: Yes Nausea and vomiting: No Pain level: 1 Mental status: Baseline
== END 2021-10-23 17:15 | disposition home or self-care (01) | DRG 807 ==
LOC: OBGYN 08:15 → OPOB 10-25 11:08
PROVIDERS: Admitting Provider Family Medicine; PCP Family Medicine; Visit Provider Family Medicine
DX: O99.284 Endocrine, nutritional and metabolic diseases complicating childbirth (principal); Z37.0 Single live birth; E03.9 Hypothyroidism, unspecified; Z3A.39 39 weeks gestation of pregnancy; Z86.16 Personal history of COVID-19
CPT/HCPCS: 36415; 51702; 59025; 59409; 85025; 85027; 99211; J2795

== ENCOUNTER → 2021-12-07 15:46 | Outpatient (BNVA) | payer OTHER, SELFPAY | PROVIDERS: PCP Family Medicine; Visit Provider Obstetrics & Gynecology | DX: Z30.9 Encounter for contraceptive management, unspecified (principal) | CPT/HCPCS: 81025 ==

== ENCOUNTER → 2022-02-24 16:24 | Outpatient (BNVA) | payer OTHER, SELFPAY | PROVIDERS: PCP Family Medicine; Visit Provider Family Medicine | DX: Z00.00 Encounter for general adult medical examination without abnormal findings (principal) | CPT/HCPCS: 80053; 80061 ==

== ENCOUNTER 2022-12-20 16:22 | Inpatient (IN) | payer OTHER, SELFPAY ==
[2022-12-20 16:46] VITALS: BP 141/72; PULSE 61; RESP 16; TEMP 36.4; O2SAT 98
[2022-12-20 17:21] LABS: Basophils % 0.3 %; Eosinophils # 0.2 10^3/uL (0.0-0.8); Eosinophils % 1.6 %; Hematocrit 40.7 % (37.0-47.0); Hemoglobin 13.8 g/dL (11.5-15.3); Lymphocytes # 3.3 10^3/uL (0.8-4.8); Lymphocytes % 33.1 %; Mean Corpuscular HGB Conc 33.9 g/dL (30.0-36.0); Mean Corpuscular Hemoglobin 29.6 pg (28.0-34.0); Mean Corpuscular Volume 87.2 fl (81-99); Mean Platelet Volume 10.2 fL (7.4-10.4); Monocytes # 0.5 10^3/uL (0.2-0.9); Monocytes % 4.6 %; Neutrophils # 6.04 10^3/uL (1.8-7.7); Neutrophils % 59.9 %; Nucleated Red Blood Cells % 0 %; Platelet Count 200 10^3/cmm (130-400); Red Blood Count 4.67 10^6/uL (4.1-5.3); Red Cell Distribution Width 13.2 % (12.1-15.1); White Blood Count 10.1 10^3/uL (4.0-10.0)
[2022-12-20 17:41] LABS: HCG, Serum Qual Negative (Negative)
[2022-12-20 17:47] LABS: Alanine Aminotransferase 10 U/L (0-33); Albumin Level 4.8 g/dL (3.5-5.2); Alkaline Phosphatase 79 U/L (35-105); Anion Gap 14.8 (5-19); Aspartate Amino Transferase 15 U/L (0-32); Blood Urea Nitrogen 17 mg/dL (6-20); Calcium 8.9 mg/dL (8.5-10.5); Carbon Dioxide 22 mmol/L (22-29); Chloride 107 mmol/L (98-107); Globulin 2.8 g/dL (1.3-4.6); Glomerular Filtration Rate 79.4 mL/min (90-130); Glucose 85 mg/dL (65-115); Lipase 9 U/L (13-60); Osmolality Calculated 291 mOsm/kg (285-295); Potassium 3.8 mmol/L (3.5-5.1); Sodium 140 mmol/L (136-145); Total Bilirubin 0.5 mg/dL (0.15-1.2); Total Protein 7.6 g/dL (6.6-8.7)
--- NOTE | 2022-12-20 18:17 | ED_ITS ---
HPI - Abdominal Pain General: Chief Complaint: Abdominal Pain Stated Complaint: abd pain sent by PCP Time Seen by Provider: 12/20/22 18:17 History of Present Illness: 42-year-old female comes in today with complaints of right lower quadrant abdominal pain. Patient reports that pain started this morning. Patient was seen at primary care office and referred to the ER for further evaluation to rule out appendicitis. Patient's had no abdominal surgeries. Patient has no chronic medical conditions but does take levothyroxine 50 mcg daily. Patient reports no blood in vomit, stool, or urine. Patient reports she has not eaten or drank anything all day. Patient appears nontoxic, patient appears in mild to moderate pain. MD elicited complaint: abdominal pain Pertinent past history: none Onset (ago): hour(s) Pain Consistency: intermittent Location: RLQ Severity: severe Quality: cramping Radiation: LLQ and back Exacerbating factors: rest Associated Symptoms: Reports nausea; Denies dysuria and fever(s) Review of Systems General: Reports: 10 or more systems reviewed and unremarkable except in HPI and below Const: Denies: fever(s) ENMT: Denies: throat pain Card: Denies: chest pain Resp: Denies: dyspnea GI: Reports: abdominal pain and nausea : Denies: flank pain, difficulty voiding or dysuria Musc: Denies: extremity pain Skin/Breast: Denies: rash Neuro: Denies: headache(s) PFSH ED PFSH: Medical History Hypothyroidism Diagnosed in 2019 and is managed by her primary care provider. She does not have an mechanical service technician No pertinent past medical history Denies diabetes, asthma, hypertension, seizures, DVT/PE PCP: Dr. Silverman Surgical History S/P ACL repair 2003, right knee-open procedure Family History Grandmother Diabetes maternal Heart disease maternal Grandfather Diabetes paternal Hypertension maternal Heart disease paternal Denies family history of Colon cancer Ovarian cancer Hyperlipidemia Psychiatric illness Breast cancer Uterine cancer Thyroid condition Physical Exam Const: COMMON NORMALS: alert HENMT: COMMON NORMALS: normocephalic HEAD & SCALP: normocephalic Resp: COMMON NORMALS: normal respiratory effort and clear to auscultation bilaterally AUSCULTATION: clear to auscultation bilaterally Cardio: COMMON NORMALS: regular rate and regular rhythm RATE: regular rate RHYTHM: regular rhythm GI: COMMON NORMALS: Soft to palpation AUSCULTATION: Yes normoactive bowel sounds PALPATION: Yes Soft to palpation and Yes Tenderness to palpation present (GI) Details: RLQ : COMMON NORMALS: Yes no CVA tenderness BLADDER/KIDNEY EXAM: Yes no CVA tenderness Back/Pelvis: COMMON NORMALS: no CVA tenderness Extremity: COMMON NORMALS: normal to inspection and no pedal edema Neuro: SENSORIUM/ORIENTATION: Yes alert Skin: COMMON NORMALS: turgor normal GENERAL SKIN EXAM: turgor normal Course ED course: 1944, Stephanie soriano contacted us and noted an critical finding on CT scan. CT shows internal hernia versus sigmoid volvulus with apparent large bowel blockage. Consulted with Dr. Alvares who recommended we talk further with surgeon on-call. Patient was notified of abnormality and we have reached out to Dr. Cobb, surgeon on-call. 1952, discussed patient with Dr. Cobb who wanted to take patient to GI lab nursing specialty department supervisor was instructed. Vital Signs: Vital signs: Vital Signs Temperature 97.9 F 12/20/22 20:43 Pulse Rate 61 12/20/22 20:43 Respiratory Rate 15 12/20/22 20:43 Blood Pressure 119/82 12/20/22 20:43 Pulse Oximetry 99 12/20/22 20:43 Oxygen Delivery Me thod Room Air 12/20/22 20:43 MDM - Abdominal Pain Medical Decision Making 42-year-old female was referred to the ER for further evaluation of right lower quadrant abdominal pain. Patient reports some nausea with right lower quadrant abdominal pain starting this morning. On exam abdomen soft with tenderness in the right lower quadrant. No rebound tenderness is noted. No guarding is noted. Differential diagnosis includes but not limited to appendicitis, gallbladder disease, diverticulitis, ovarian cyst, renal colic. White blood cell count was 10,000, CMP was unremarkable, urinalysis was normal. CT of the abdomen pelvis ruled out appendicitis but did note a suggestive sign of internal hemorrhoids/sigmoid volvulus with possible early partial large bowel obstruction. Reviewed this with Dr. Alvares, attending ER physician who recommended consult with surgeon on-call. Contacted Dr. Cobb, on-call surgeon who agreed to come in and see patient for further evaluation and treatment. Lab Data 12/20/22 17:11 12/20/22 17:11 Labs/Radiology: Radiology Impressions Abdomen/Pelvis CT 12/20/22 18:25 IMPRESSION: 1. Findings suggestive of internal hernia/sigmoid volvulus with probable resultant early versus partial large bowel obstruction, as described above. No bowel wall thickening or pneumatosis. 2. Additional findings, as above. COMMENTS: Consistent with the [employer]'s Incidental Findings Committee white paper (J Am Maulik Radiol 2018): Any incidental renal lesion less than 1 cm or classified as too small to characterize, or any incidental cystic renal lesion characterized as simple-appearing, is likely benign. No follow-up imaging is recommended for these lesions per consensus recommendations based on imaging criteria. ADDENDUM: 12/20/221938 ADDENDUM: THIS REPORT CONTAINS FINDINGS THAT MAY BE CRITICAL TO PATIENT CARE. As of 7:36 PM CDT on 12/20/2022, KANDI DIEHL confirmed receipt of the exam report, is aware of the critical finding and indicated no conference call was necessary to discussed the exam findings. Laboratory Results WBC 10.1 10^3/uL (4.0-10.0) H 12/20/22 17:11 RBC 4.67 10^6/uL (4.1-5.3) 12/20/22 17:11 Hgb 13.8 g/dL (11.5-15.3) 12/20/22 17:11 Hct 40.7 % (37.0-47.0) 12/20/22 17:11 MCV 87.2 fl (81-99) 12/20/22 17:11 MCH 29.6 pg (28.0-34.0) 12/20/22 17:11 MCHC 33.9 g/dL (30.0-36.0) 12/20/22 17:11 RDW 13.2 % (12.1-15.1) 12/20/22 17:11 Plt Count 200 10^3/cmm (130-400) 12/20/22 17:11 MPV 10.2 fL (7.4-10.4) 12/20/22 17:11 Neut % (Auto) 59.9 % 12/20/22 17:11 Lymph % (Auto) 33.1 % 12/20/22 17:11 Bowman % (Auto) 4.6 % 12/20/22 17:11 Eos % (Auto) 1.6 % 12/20/22 17:11 Baso % (Auto) 0.3 % 12/20/22 17:11 Neut # (Auto) 6.04 10^3/uL (1.8-7.7) 12/20/22 17:11 Lymph # (Auto) 3.3 10^3/uL (0.8-4.8) 12/20/22 17:11 Bowman # (Auto) 0.5 10^3/uL (0.2-0.9) 12/20/22 17:11 Eos # (Auto) 0.2 10^3/uL (0.0-0.8) 12/20/22 17:11 Baso # (Auto) 0.0 10^3/uL (0.0-0.1) 12/20/22 17:11 Nucleated RBC % (auto) 0 % 12/20/22 17:11 Nucleated RBCs # 0.0 /100WBC 12/20/22 17:11 Sodium 140 mmol/L (136-145) 12/20/22 17:11 Potassium 3.8 mmol/L (3.5-5.1) 12/20/22 17:11 Chloride 107 mmol/L (98-107) 12/20/22 17:11 Carbon Dioxide 22 mmol/L (22-29) 12/20/22 17:11 Anion Gap 14.8 (5-19) 12/20/22 17:11 BUN 17 mg/dL (6-20) 12/20/22 17:11 Creatinine 0.8 mg/dL (0.5-0.9) 12/20/22 17:11 GFR Calculation 79.4 mL/min (90-130) L 12/20/22 17:11 Glucose 85 mg/dL (65-115) 12/20/22 17:11 Calculated Osmolality 291 mOsm/kg (285-295) 12/20/22 17:11 Calcium 8.9 mg/dL (8.5-10.5) 12/20/22 17:11 Total Bilirubin 0.5 mg/dL (0.15-1.2) 12/20/22 17:11 AST 15 U/L (0-32) 12/20/22 17:11 ALT 10 U/L (0-33) 12/20/22 17:11 Alkaline Phosphatase 79 U/L (35-105) 12/20/22 17:11 Total Protein 7.6 g/dL (6.6-8.7) 12/20/22 17:11 Albumin 4.8 g/dL (3.5-5.2) 12/20/22 17:11 Globulin 2.8 g/dL (1.3-4.6) 12/20/22 17:11 Lipase 9 U/L (13-60) L 12/20/22 17:11 HCG, Qual Negative (Negative) 12/20/22 17:11 Urine Color Yellow (Yellow) 12/20/22 18:14 Urine Appearance Clear (CLEAR) 12/20/22 18:14 Urine pH 5 (5-7) 12/20/22 18:14 Ur Specific [place] 1.010 (1.005-1.030) 12/20/22 18:14 Urine Protein Neg (Negative) 12/20/22 18:14 Urine Glucose (UA) Norm (Normal) 12/20/22 18:14 Urine Ketones Negative (Negative) 12/20/22 18:14 Urine Blood Neg (Negative) 12/20/22 18:14 Urine Nitrate Negative (Negative) 12/20/22 18:14 Urine Bilirubin Neg (Negative) 12/20/22 18:14 Urine Urobilinogen Neg mg/dL (Negative) 12/20/22 18:14 Ur Leukocyte Esterase Negative (Negative) 12/20/22 18:14 Discharge Plan Discharge Condition: Stable Coding Level of Care Code ED Friction Paint Machine Tender for Fahad Rodriguez
--- NOTE | 2022-12-20 18:25 | CTR_ITS ---
PROCEDURE INFORMATION: Exam: CT Abdomen And Pelvis With Contrast Exam date and time: 12/20/2022 6:44 PM Age: 42 years old Clinical indication: Abdominal pain; Localized; Right lower quadrant (rlq); Additional info: Rlq pain, R/O infection or abscess TECHNIQUE: Imaging protocol: Computed tomography of the abdomen and pelvis with contrast. Axial, coronal and sagittal reformatted images were created and reviewed. Radiation optimization: All CT scans at this facility use at least one of these dose optimization techniques: automated exposure control; mA and/or kV adjustment per patient size (includes targeted exams where dose is matched to clinical indication); or iterative reconstruction. Contrast material: OMNI 350; Contrast volume: 100 ml; Contrast route: INTRAVENOUS (IV); REPORTING DATA: Count of CT and Cardiac NM exams in prior 12 months: This patient has received 0 known CTs and 0 known cardiac nuclear medicine studies in the 12 months prior to the current study. COMPARISON: [place] [id number] 08/23/2021 10:07 AM RADIATION DOSE METRICS: Total DLP (mGy-cm): 490.44 FINDINGS: Tubes, catheters and devices: Intrauterine device in place. Liver: Unremarkable. Gallbladder and bile ducts: No radiodense gallstones. No biliary ductal dilatation. Pancreas: Unremarkable. Spleen: Unremarkable. Adrenal glands: Normal. No mass. Kidneys and ureters: 5 mm low-density left renal lesion, too small to characterize. No radiodense calculi. No hydronephrosis. Stomach and bowel: Mesenteric distortion in the right mid abdomen with twisting/kinking of the sigmoid colon and mild upstream gaseous and fecal distention of the colon. No definite bowel wall thickening. No pneumatosis. Appendix: Normal. Intraperitoneal space: No free fluid. No organized fluid collection. No free air. Vasculature: Unremarkable. No aneurysm. Lymph nodes: No pathologically enlarged lymph nodes. Urinary bladder: Unremarkable as visualized. Reproductive: Unremarkable. Bones/joints: No acute osseous abnormality. Mild degenerative changes. Soft tissues: Unremarkable. CT/CT abdomen pelvis w con* [id number] IMPRESSION: 1. Findings suggestive of internal hernia/sigmoid volvulus with probable resultant early versus partial large bowel obstruction, as described above. No bowel wall thickening or pneumatosis. 2. Additional findings, as above. COMMENTS: Consistent with the [employer]'s Incidental Findings Committee white paper (J Am Maulik Radiol 2018): Any incidental renal lesion less than 1 cm or classified as too small to characterize, or any incidental cystic renal lesion characterized as simple-appearing, is likely benign. No follow-up imaging is recommended for these lesions per consensus recommendations based on imaging criteria.
[2022-12-20] MEDS: iohexol 350 mg/mL 500 mL Btl (per mL) IV (18:47)
[2022-12-20 18:48] LABS: Add Urine Microscopic? NO; Charge for UA Resulting for Rev
[2022-12-20] MEDS: sodium chloride 0.9% 1,000 ML 999 ML IV (19:10)
[2022-12-20 19:16] LABS: Bilirubin Urine Neg (Negative); Blood Urine Neg (Negative); Glucose Urine UA Norm (Normal); Ketones Urine Negative (Negative); Leukocyte Esterase Urine Negative (Negative); Nitrate Urine Negative (Negative); Protein Urine Neg (Negative); Urine Appearance Clear (CLEAR); Urine Color Yellow (Yellow); Urobilinogen Urine Neg (Negative); pH Urine 5 (5-7)
--- NOTE | 2022-12-20 20:40 | PM.HP ---
Providers/Chief Complaint Primary Care Provider: Yamel Velazquez MD Chief Complaint: abd pain sent by PCP History of Present Illness Suha Cobb is a 42 year old female who presented to the emergency room with abdominal pain. At 11 AM this morning she began having right lower quadrant abdominal pain and distention. She denies any nausea or vomiting. Her pain is dull and constant and does not radiate. Palpation makes the pain worse. Nothing makes pain better. CT shows a likely sigmoid volvulus possible internal hernia with early large bowel obstruction. No signs of bowel wall edema or pneumatosis. Review of Systems General: Reports: 10 or more systems reviewed and unremarkable except in HPI and below Medications/Allergies Home Medications Medication Instructions Recorded Confirmed Last Taken Type vit no.95-ferrous 1 tab PO DAILY 10/07/19 07/20/22 10/22/21 06:30 History fumarate 28 mg-folic acid 800 mcg tablet () levonorgestrel 20 mcg/24 hours (8 1 insert intrauterine .every 6 12/07/21 07/20/22 Unknown Rx yrs) 52 mg intrauterine device years #1 ea (Mirena) azithromycin 250 mg tablet See Rx Instructions PO .COMPLEX #6 07/20/22 07/20/22 Unknown Rx tabs levothyroxine 50 mcg tablet See Rx Instructions .Route 10/25/22 Unknown Rx .COMPLEX #90 tabs Allergies Allergy/AdvReac Type Severity Reaction Status Date / Time No Known Allergies Allergy Verified 12/20/22 16:50 PFSH Acute PFSH: Medical History Hypothyroidism Diagnosed in 2019 and is managed by her primary care provider. 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 Silverman Surgical History S/P ACL repair 2002, right knee-open procedure Family History Grandmother Diabetes maternal Heart disease maternal Grandfather Diabetes paternal Hypertension maternal Heart disease paternal Denies family history of Colon cancer Ovarian cancer Hyperlipidemia Psychiatric illness Breast cancer Uterine cancer Thyroid condition Vitals/I&O/Wt Last Vital Signs Temp 97.6 F 12/20/22 16:46 Pulse 61 12/20/22 16:46 Resp 16 12/20/22 16:46 BP 141/72 12/20/22 16:46 Pulse Ox 98 12/20/22 16:46 O2 Del Method Room Air 12/20/22 16:46 Weight last 48 hrs Weight 165 lb Physical Exam Narrative: General : Patient is well developed , no acute distress, oriented x3 Head : Normal cephalic, a-traumatic. Ears : Pinnae and external canal are normal. Hearing is normal. Eyes : PERRLA, Sclera and injection are normal. No conjunctival discharge. Nose : Mucous membranes are without erythema. Throat : buccal mucosa is normal, gums are without significant recession or hypertrophy. Lungs : Equal chest rise bilaterally, no use of accessory muscles, trachea is midline. Cor : Rate and rhythm are normal. Abdomen : Soft, mild distention and mild right lower quadrant and suprapubic tenderness, no guarding rebound or masses Extremities : No edema, no cyanosis or clubbing, dorsalis pedis pulses are present bilaterally, non-tender to palpation of calves. Upper extremities are normal bilaterally. Back : non-tender to palpation, no CVA tenderness. Neuro : CN II - XII intact, Upper and lower extremities have equal and full strength Data 12/20/22 17:11 12/20/22 17:11 A&P Assessment and plan (1) Large bowel obstruction: Plan This appears to be due to a sigmoid volvulus. It is possibly an internal hernia Sigmoidoscopy The risks and benefits of the procedure, including bleeding, infection, intestinal perforation requiring surgery, missed lesion were explained to the patient. The patient is understanding of the risks and wishes to proceed. If I am unable to detorse her colon, or she receives a colonic perforation, she will have to go to the operating room for: Exploratory laparotomy, possible bowel resection, possible ostomy formation The risks and benefits of the procedure, including but not limited to, bleeding, infection, scar, numbness, pain, damage to surrounding structures, ostomy malfunction, need for further surgery, were explained to the patient. She is understanding of the risks and wishes to proceed. Attestations Medical Necessity Statement*: Patient will require multiple nights in the hospital for bowel prep, resulting sigmoidectomy and recovery Coding Level of Care Code Acute Code for [facility] Fwd Diagnoses Large bowel obstruction K56.609
[2022-12-20 20:43] VITALS: BP 119/82; PULSE 61; RESP 15; TEMP 36.6; O2SAT 99
--- NOTE | 2022-12-20 20:54 | ANES.PREANE2 ---
Pre-Anesthetic Assessment Height/Weight: Height 1.75 m Weight 74.843 kg Temp Pulse Resp BP Pulse Ox O2 Del Method 97.9 F 61 15 119/82 99 Room Air 12/20/22 20:43 12/20/22 20:43 12/20/22 20:43 12/20/22 20:43 12/20/22 20:43 12/20/22 20:43 Operation Date: 12/20/22 22:00 Proposed Procedures p Colonoscopy(Not Applicable) - Clyde Cobb DO Familial anesthetic complications: none Was Beta Mello taken within 24 hours: N/A Was Clonidine taken within 24 hours: N/A Social No alcohol and No tobacco Exam alert, oriented x 3, clear to auscultation bilaterally and regular rate & rhythm Airway Submandibular: within normal limits Cervical ROM: within normal limits Mallampati: Class II Dentition: full CV/HEM Anemia Metabolic Thyroid Disease Anesthetic Plan ASA status: 2E Anesthesia: Choice Medications/Allergies Home Medications Medication Instructions Recorded Confirmed Last Taken Type vit no.95-ferrous 1 tab PO DAILY 10/07/19 07/20/22 10/22/21 06:30 History fumarate 28 mg-folic acid 800 mcg tablet () levonorgestrel 20 mcg/24 hours (8 1 insert intrauterine .every 6 12/07/21 07/20/22 Unknown Rx yrs) 52 mg intrauterine device years #1 ea (Mirena) azithromycin 250 mg tablet See Rx Instructions PO .COMPLEX #6 07/20/22 07/20/22 Unknown Rx tabs levothyroxine 50 mcg tablet See Rx Instructions .Route 10/25/22 Unknown Rx .COMPLEX #90 tabs Allergies Allergy/AdvReac Type Severity Reaction Status Date / Time No Known Allergies Allergy Verified 12/20/22 16:50 [facility] Anesthesia Medical History Hypothyroidism Diagnosed in 2019 and is managed by her primary care provider. 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 Silverman Surgical History S/P ACL repair 2002, right knee-open procedure Family History Grandmother Diabetes maternal Heart disease maternal Grandfather Diabetes paternal Hypertension maternal Heart disease paternal Denies family history of Colon cancer Ovarian cancer Hyperlipidemia Psychiatric illness Breast cancer Uterine cancer Thyroid condition Data Anesthesia 12/20/22 17:11 12/20/22 17:11 Short CBC 12/20/22 Range/Units 17:11 WBC 10.1 H (4.0-10.0) 10^3/uL Hgb 13.8 (11.5-15.3) g/dL Hct 40.7 (37.0-47.0) % MCV 87.2 (81-99) fl Plt Count 200 (130-400) 10^3/cmm Neut % (Auto) 59.9 % Neut # (Auto) 6.04 (1.8-7.7) 10^3/uL BMP 12/20/22 17:11 Sodium 140 Potassium 3.8 Chloride 107 Carbon Dioxide 22 BUN 17 Creatinine 0.8 Glucose 85 Calcium 8.9 Liver Function 12/20/22 Range/Units 17:11 Total Bilirubin 0.5 (0.15-1.2) mg/dL AST 15 (0-32) U/L ALT 10 (0-33) U/L Alkaline Phosphatase 79 (35-105) U/L Albumin 4.8 (3.5-5.2) g/dL Urine 12/20/22 Range/Units 18:14 Urine Color Yellow (Yellow) Urine Appearance Clear (CLEAR) Urine pH 5 (5-7) Ur Specific [place] 1.010 (1.005-1.030) Urine Protein Neg (Negative) Urine Glucose (UA) Norm (Normal) Urine Ketones Negative (Negative) Urine Nitrate Negative (Negative) Urine Bilirubin Neg (Negative) Ur Leukocyte Esterase Negative (Negative) Cardiac Studies: No Data to Display
[2022-12-20] MEDS: sodium chloride 0.9% 1,000 ML 30 ML IV (21:12)
[2022-12-20 21:50] VITALS: BP 100/57; PULSE 70; RESP 18; TEMP 36.4; O2SAT 100
[2022-12-20 22:15] VITALS: BP 90/53; PULSE 77; RESP 18; TEMP 36.8; O2SAT 100
[2022-12-20 22:51] VITALS: BP 109/60; PULSE 60; RESP 18; TEMP 36.7; O2SAT 100
[2022-12-20] MEDS: D5-NS 0.45% + KCL 20 mEq 20 MEQ/1,000 ML BAG 75 MEQ IV (23:01)
[2022-12-20] MEDS: pantoprazole 40 mg SDV IVP (23:01)
[2022-12-20] MEDS: heparin 5,000 unit/mL INJ 1 mL 5000 UNIT SUBCUT (23:02)
[2022-12-20] MEDS: peg /e-lyte soln 4,000 mL Btl 4000 ML PO (23:44)
[2022-12-21] VITALS (10 sets, daily range): BP systolic 106–124; BP diastolic 62–75; PULSE 47–64; RESP 14–18; TEMP 36.5–36.8; O2SAT 96–100
[2022-12-21] MEDS: morphine 4 mg/mL SDV 1 mL 2 MG IVP ×3 (04:26→11:49)
--- NOTE | 2022-12-21 05:13 | XRR_ITS ---
PROCEDURE INFORMATION: Exam: XR Complete Acute Abdomen Series Including Chest Exam date and time: 12/21/2022 5:25 AM Age: 42 years old Clinical indication: Other: S/P decompression of sigmoid volvulous; Prior surgery; Surgery date: Post-operative (0-2 days) TECHNIQUE: Imaging protocol: Radiologic exam. Complete acute abdomen series, including 2 or more views of the abdomen and a single view chest. COMPARISON: CT abdomen pelvis w con* [id number] 12/20/2022 6:44 PM FINDINGS: Lungs: Lungs are clear. Pleural spaces: There is no pleural effusion or pneumothorax. Heart/Mediastinum: Cardiomediastinal contours are unremarkable. Gastrointestinal tract: There is dilated gas-filled colon in the left upper quadrant. There is intermittently gas distended small bowel with air-fluid levels. Intraperitoneal space: No gross free air. Organs: The urinary bladder is distended. Bones/joints: Bones are unremarkable. Soft tissues: Normal. XR/XR acute abdomen series [id number] IMPRESSION: 1. Increased severity and decreased extent of colonic dilation since 12/20/2022. Dilated colon in the right upper quadrant is no longer visible. Dilated colon in the left upper quadrant is increased. Persistent obstruction is not excluded. 2. Intermittently distended small bowel with air-fluid levels. Ileus versus obstruction.
[2022-12-21 07:11] LABS: Basophils % 0.4 %; Eosinophils # 0.2 10^3/uL (0.0-0.8); Eosinophils % 3.1 %; Hematocrit 39.3 % (37.0-47.0); Hemoglobin 13.1 g/dL (11.5-15.3); Lymphocytes # 2.8 10^3/uL (0.8-4.8); Lymphocytes % 38.3 %; Mean Corpuscular HGB Conc 33.3 g/dL (30.0-36.0); Mean Corpuscular Volume 86.9 fl (81-99); Mean Platelet Volume 10.4 fL (7.4-10.4); Monocytes # 0.4 10^3/uL (0.2-0.9); Monocytes % 5.5 %; Neutrophils # 3.83 10^3/uL (1.8-7.7); Neutrophils % 52.4 %; Nucleated Red Blood Cells % 0 %; Platelet Count 173 10^3/cmm (130-400); Red Blood Count 4.52 10^6/uL (4.1-5.3); Red Cell Distribution Width 13.3 % (12.1-15.1); White Blood Count 7.3 10^3/uL (4.0-10.0)
--- NOTE | 2022-12-21 07:15 | ANE.PACU2 ---
Inpatient post-anesthesia follow up: Airway intact: Yes Vital signs: Temperature 98.2 F Pulse Rate 47 Respiratory Rate 17 Blood Pressure 106/64 Pulse Oximetry 96 Oxygen Delivery Me thod Room Air Oxygen Flow Rate Fraction of Inspir ed Oxygen Hydration adequate: Yes Nausea and vomiting: No Pain level: 2 Mental status: Baseline
[2022-12-21 07:26] LABS: Phosphorus 3.1 mg/dL (2.5-4.5)
[2022-12-21 07:27] LABS: Anion Gap 13.9 (5-19); Blood Urea Nitrogen 12 mg/dL (6-20); Calcium 8.4 mg/dL (8.5-10.5); Carbon Dioxide 25 mmol/L (22-29); Chloride 107 mmol/L (98-107); Glomerular Filtration Rate 92.7 mL/min (90-130); Glucose 90 mg/dL (65-115); Osmolality Calculated 293 mOsm/kg (285-295); Potassium 3.9 mmol/L (3.5-5.1); Sodium 142 mmol/L (136-145)
[2022-12-21] MEDS: heparin 5,000 unit/mL INJ 1 mL 5000 UNIT SUBCUT ×2 (08:50→22:05)
[2022-12-21] MEDS: D5-NS 0.45% + KCL 20 mEq 20 MEQ/1,000 ML BAG 75 MEQ IV (12:53)
--- NOTE | 2022-12-21 16:59 | XRR_ITS ---
PROCEDURE INFORMATION: Exam: XR Abdomen Exam date and time: 12/21/2022 4:28 PM Age: 42 years old Clinical indication: Abdominal pain; Additional info: Obstruction? , She drank 1 gallon of golytely and has had almost no output. TECHNIQUE: Imaging protocol: Radiologic exam of the abdomen. Views: 2 Views. Upright and supine views. COMPARISON: CR XR acute abdomen series [id number] 12/21/2022 5:25 AM FINDINGS: Tubes, catheters and devices: There is an intrauterine device in the pelvis. Lungs: Lungs are clear bilaterally. Pleural spaces: No pleural effusion. No pneumothorax. Heart/Mediastinum: Cardiac silhouette and mediastinal contours are unremarkable. Gastrointestinal tract: No evidence for bowel obstruction or perforation. Intraperitoneal space: No free intraperitoneal air. Organs: No organomegaly. Vasculature: Multiple calcifications in the pelvis most likely representing calcified phleboliths. Bones/joints: Unremarkable for age. XR/XR acute abdomen series [id number] IMPRESSION: 1. No evidence for bowel obstruction or perforation. 2. No acute cardiopulmonary process. 3. There is an intrauterine device in the pelvis.
--- NOTE | 2022-12-21 17:44 | PM.PN ---
Subjective Subjective: Patient seen and examined. She reports that she is feeling better. She has drank the entire gallon of GoLytely with minimal rectal tube output. She is not reporting much abdominal pain. Denies any nausea or vomiting Vitals/I&O/Wt Last Vital Signs Temp 97.9 F 12/21/22 16:00 Pulse 58 L 12/21/22 16:00 Resp 16 12/21/22 16:00 BP 108/66 12/21/22 16:00 Pulse Ox 97 12/21/22 16:00 O2 Del Method Room Air 12/21/22 16:00 12/21/22 12/21/22 12/21/22 06:59 14:59 22:59 Intake Total 2079 Output Total 1999 Balance 2079 -1999 Weight last 48 hrs Weight 165 lb Physical Exam Narrative: General: No acute distress, awake alert and oriented x3 Abdomen: Soft, distended, mildly and diffusely tender to palpation, no guarding rebound or masses Urinary Catheter Management: Vega: Cath Placed During This Visit: yes Urinary Catheter Date of Insertion: 12/21/22 Urinary Catheter Time of Insertion: 11:00 Data 12/21/22 06:50 12/21/22 06:50 A&P Assessment and plan (1) Large bowel obstruction: Plan Status post colonoscopic decompression of sigmoid volvulus Stat acute abdominal series She may need to go for another decompression if large bowel obstruction is seen on x-ray or if she does not begin passing stool. Plan for laparoscopic sigmoidectomy tomorrow N.p.o. after midnight Attestations Medical Necessity Statement*: Patient will require multiple more nights in the hospital following laparoscopic sigmoidectomy Coding Level of Care Code Acute Code for [facility] Fwd Diagnoses Large bowel obstruction K56.609
[2022-12-21] MEDS: pantoprazole 40 mg SDV IVP (21:11)
[2022-12-21] MEDS: acetaminophen 325 mg Tablet 650 MG PO (22:03)
[2022-12-22] VITALS (24 sets, daily range): BP systolic 98–133; BP diastolic 62–85; PULSE 39–77; RESP 12–18; TEMP 36.4–37.4; O2SAT 91–100
[2022-12-22] MEDS: D5-NS 0.45% + KCL 20 mEq 20 MEQ/1,000 ML BAG 75 MEQ IV (02:02)
[2022-12-22 06:11] LABS: Basophils % 0.3 %; Eosinophils # 0.2 10^3/uL (0.0-0.8); Eosinophils % 2.7 %; Hemoglobin 11.6 g/dL (11.5-15.3); Lymphocytes # 2.5 10^3/uL (0.8-4.8); Lymphocytes % 38.6 %; Mean Corpuscular HGB Conc 33.1 g/dL (30.0-36.0); Mean Corpuscular Hemoglobin 28.4 pg (28.0-34.0); Mean Corpuscular Volume 85.8 fl (81-99); Mean Platelet Volume 10.7 fL (7.4-10.4); Monocytes # 0.5 10^3/uL (0.2-0.9); Neutrophils # 3.37 10^3/uL (1.8-7.7); Neutrophils % 51.2 %; Nucleated Red Blood Cells % 0 %; Platelet Count 164 10^3/cmm (130-400); Red Blood Count 4.08 10^6/uL (4.1-5.3); Red Cell Distribution Width 13.2 % (12.1-15.1); White Blood Count 6.6 10^3/uL (4.0-10.0)
[2022-12-22 06:30] LABS: Anion Gap 15.5 (5-19); Blood Urea Nitrogen 5 mg/dL (6-20); Calcium 8.2 mg/dL (8.5-10.5); Carbon Dioxide 22 mmol/L (22-29); Chloride 108 mmol/L (98-107); Glomerular Filtration Rate 110.7 mL/min (90-130); Glucose 107 mg/dL (65-115); Magnesium 1.9 mg/dL (1.7-2.3); Osmolality Calculated 292 mOsm/kg (285-295); Phosphorus 3.5 mg/dL (2.5-4.5); Potassium 3.5 mmol/L (3.5-5.1); Sodium 142 mmol/L (136-145)
[2022-12-22] MEDS: morphine 4 mg/mL SDV 1 mL 2 MG IVP (07:24)
[2022-12-22] MEDS: ondansetron 2 mg/ML SDV 2 mL 4 MG IVP (10:32)
[2022-12-22] MEDS: scopolamine 1.5 Patch 1 PATCH TRANSDERMA (10:32)
[2022-12-22] MEDS: diphenhydrAMINE 50 mg/mL SDV 1mL 12.5 MG IVP (10:33)
[2022-12-22] MEDS: sodium chloride 0.9% 1,000 ML 30 ML IV (10:34)
--- NOTE | 2022-12-22 11:28 | P.PN_ITS ---
Vitals/I&O/Wt Last Vital Signs Temp 98.6 F 12/22/22 10:21 Pulse 63 12/22/22 10:21 Resp 16 12/22/22 10:21 BP 119/85 12/22/22 10:21 Pulse Ox 99 12/22/22 10:21 O2 Del Method Room Air 12/22/22 10:21 12/21/22 12/22/22 12/22/22 22:59 06:59 14:59 Intake Total 600 / 2680 986.25 / 3666.25 Output Total 2200 / 2200 400 / 2600 1000 / 1000 Balance -1600 / 480 586.25 / 1066.25 -1000 / -1000 Weight last 48 hrs Weight 165 lb Physical Exam 2 Urinary Catheter Management: Vega: Cath Placed During This Visit: yes Reason for Continuing Indwelling Catheter: Acute Urinary Retention or Obstruction Urinary Catheter Date of Insertion: 12/21/22 Urinary Catheter Time of Insertion: 11:00 Data 12/22/22 05:38 12/22/22 05:38 A&P Assessment and plan (1) Sigmoid volvulus: Plan Laparoscopic sigmoidectomy The risks and benefits of the procedure, including but not limited to, bleeding, infection, scar, numbness, pain, damage to surrounding structures, need for an ostomy, ostomy malfunction, need for converting to an open procedure, need for further surgery, were explained to the patient.? She is understanding of the risks and wishes to proceed. Attestations Medical Necessity Statement*: Patient will require multiple more nights in the hospital following laparoscopic sigmoidectomy Coding Level of Care Code Acute Code for [facility] Fwd Diagnoses Sigmoid volvulus K56.2
[2022-12-22] MEDS: piperacillin-tazobactam 3.375 GM in sodium chloride 0.9% (plus) 50 ML IV (11:41)
[2022-12-22] MEDS: lidocaine-epi 2% 20 mL INJ INJECTION (12:22)
--- NOTE | 2022-12-22 12:26 | SUR.OPER ---
1226 family updated of surgical status. HD
--- NOTE | 2022-12-22 12:35 | ANES.PREANE2 ---
Pre-Anesthetic Assessment Height/Weight: Height 1.75 m Weight 74.843 kg Temp Pulse Resp BP Pulse Ox O2 Del Method 98.6 F 63 16 119/85 99 Room Air 12/22/22 10:21 12/22/22 10:21 12/22/22 10:21 12/22/22 10:21 12/22/22 10:21 12/22/22 10:21 Operation Date: 12/20/22 22:00 Proposed Procedures p Colonoscopy(Not Applicable) - Clyde Cobb DO Operation Date: 12/20/22 22:00 Proposed Procedures p Colonoscopy(Not Applicable) - Clyde Cobb DO Operation Date: 12/22/22 11:00 Proposed Procedures p Laparoscopic Sigmoidectomy(Not Applicable) - Clyde Cobb DO Familial anesthetic complications: none Was Beta Mello taken within 24 hours: N/A Was Clonidine taken within 24 hours: N/A Last intake: Intake Last Liquid Date 12/21/22 Last Liquid Time 20:00 Last Solid Date 12/20/22 Last Solid Time 10:00 Social No alcohol and No tobacco Exam alert, oriented x 3, clear to auscultation bilaterally and regular rate & rhythm Airway Submandibular: within normal limits Cervical ROM: within normal limits Mallampati: Class II Dentition: full GI volvulus Metabolic Thyroid Disease Anesthetic Plan ASA status: 2 Anesthesia: General (TIVA) Other: h/o PONV, discussed postop epidural if procedure opens Medications/Allergies Home Medications Medication Instructions Recorded Confirmed Last Taken Type levonorgestrel 20 mcg/24 hours (8 1 insert intrauterine .every 6 12/07/21 12/21/22 Unknown Rx yrs) 52 mg intrauterine device years #1 ea (Mirena) levothyroxine 50 mcg tablet See Rx Instructions .Route 10/25/22 12/21/22 Unknown Rx .COMPLEX #90 tabs Allergies Allergy/AdvReac Type Severity Reaction Status Date / Time No Known Allergies Allergy Verified 12/20/22 16:50 Current Medications Generic Name Dose Route Start Last Admin Trade Name Freq PRN Reason Stop Dose Admin Acetaminophen 650 mg 12/21/22 21:07 12/21/22 22:03 Acetaminophen 325 Mg Tablet PO 650 mg Q6H PRN Administration MILD PAIN Diphenhydramine HCl 12.5 mg 12/20/22 20:54 12/22/22 10:33 Diphenhydramine 50 Mg/Ml Sdv 1ml IVP 12.5 mg ONCE PRN Administration PONV Heparin Sodium (Porcine) 5,000 unit 12/20/22 21:45 12/22/22 08:55 Heparin 5,000 Unit/Ml Inj 1 Ml SUBCUT Not Given Q12H RICK Potassium Chloride/Dextrose/Sod Cl 20 meq in 1,000 mls @ 75 mls/hr 12/20/22 21:45 12/22/22 02:02 D5-Ns 0.45% + Kcl 20 Meq IV 75 mls/hr .[id number] RICK Administration Sodium Chloride 1,000 mls @ 30 mls/hr 12/22/22 10:30 12/22/22 10:34 Sodium Chloride 0.9% IV 12/23/22 10:29 30 mls/hr .Q24H RICK Administration Morphine Sulfate 2 mg 12/20/22 21:45 12/22/22 07:24 Morphine 4 Mg/Ml Sdv 1 Ml IVP 2 mg Q4H PRN Administration SEVERE PAIN Ondansetron HCl 4 mg 12/20/22 20:54 12/22/22 10:32 Ondansetron 2 Mg/Ml Sdv 2 Ml IVP 4 mg ONCE PRN Administration NAUSEA AND VOMITING Pantoprazole Sodium 40 mg 12/20/22 21:45 12/21/22 21:11 Pantoprazole 40 Mg Sdv IVP 40 mg Q24H RICK Administration PFSH Anesthesia Medical History Hypothyroidism Diagnosed in 2019 and is managed by her primary care provider. 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 Silverman Surgical History S/P ACL repair 2002, right knee-open procedure Family History Grandmother Diabetes maternal Heart disease maternal Grandfather Diabetes paternal Hypertension maternal Heart disease paternal Denies family history of Colon cancer Ovarian cancer Hyperlipidemia Psychiatric illness Breast cancer Uterine cancer Thyroid condition Data Anesthesia 12/22/22 05:38 12/22/22 05:38 Short CBC 12/20/22 12/21/22 12/22/22 Range/Units 17:11 06:50 05:38 WBC 10.1 H 7.3 6.6 (4.0-10.0) 10^3/uL Hgb 13.8 13.1 11.6 (11.5-15.3) g/dL Hct 40.7 39.3 35.0 L (37.0-47.0) % MCV 87.2 86.9 85.8 (81-99) fl Plt Count 200 173 164 (130-400) 10^3/cmm Neut % (Auto) 59.9 52.4 51.2 % Neut # (Auto) 6.04 3.83 3.37 (1.8-7.7) 10^3/uL BMP 12/20/22 12/21/22 12/22/22 17:11 06:50 05:38 Sodium 140 142 142 Potassium 3.8 3.9 3.5 Chloride 107 107 108 H Carbon Dioxide 22 25 22 BUN 17 12 5 L Creatinine 0.8 0.7 0.6 Glucose 85 90 107 Calcium 8.9 8.4 L 8.2 L Liver Function 12/20/22 Range/Units 17:11 Total Bilirubin 0.5 (0.15-1.2) mg/dL AST 15 (0-32) U/L ALT 10 (0-33) U/L Alkaline Phosphatase 79 (35-105) U/L Albumin 4.8 (3.5-5.2) g/dL Urine 12/20/22 Range/Units 18:14 Urine Color Yellow (Yellow) Urine Appearance Clear (CLEAR) Urine pH 5 (5-7) Ur Specific [place] 1.010 (1.005-1.030) Urine Protein Neg (Negative) Urine Glucose (UA) Norm (Normal) Urine Ketones Negative (Negative) Urine Nitrate Negative (Negative) Urine Bilirubin Neg (Negative) Ur Leukocyte Esterase Negative (Negative) Cardiac Studies: No Data to Display
--- NOTE | 2022-12-22 13:25 | SUR.OPER ---
called mother and notified her of surgical progress.
--- NOTE | 2022-12-22 13:49 | PM.OP ---
Operative Report Date of procedure: December 22, 2022 Pre-op diagnosis: Sigmoid volvulus Post-op diagnosis: same Procedure done: Laparoscopic sigmoidectomy Flexible sigmoidoscopy Implants: Vistaseal Specimens removed/disposition: Sigmoid colon Surgeon: Dr. Clyde Cobb DO Anesthesia: General Estimated blood loss (mL): 50 Complications: None apparent Brief History: This very pleasant 42-year-old female who presented to the hospital with 1 day history of diffuse abdominal pain and distention. She was diagnosed with a sigmoid volvulus. She underwent decompression with sigmoidoscopy. She then completed a bowel prep and was consented for laparoscopic sigmoidectomy. The risk and benefits were explained and documented. Procedure: The patient was wheeled in operative room and placed on the OR table in the supine position. The abdomen was inspected prepped and draped in the usual sterile fashion. A rectal prep was performed. Vega was placed and NG tube was placed to low intermittent suction. A timeout was performed. All present were in agreement. General endotracheal intubation was achieved by the department of anesthesia. All present were in agreement. 2% lidocaine with epinephrine was used to anesthetize the abdomen in the left upper quadrant over Eaton's point. A stab incision was made with 15 blade scalpel and the Veress needle was inserted into the abdomen. Intra-abdominal insufflation was brought to 15 mmHg. After localization, 5 mm trocars were placed infraumbilically, in the right lower quadrant and in the right upper quadrant. The sigmoid colon was identified and found to be dilated and very redundant. A 5 cm vertical incision was made superior pubic Vanessa after localization. Dissection was carried down to the fascia with electrocautery. The fascia was opened with electrocautery and the peritoneum was opened bluntly. The sigmoid colon was then extracorporealized. A window was made in the mesentery with electrocautery at the rectosigmoid junction. A TA stapler was then used to transect the sigmoid at the rectum. A window was made in the mesentery with electrocautery at the proximal sigmoid. A 100 mm AYO blue load was then used to transect the proximal sigmoid. The Enseal was then used to transect the mesentery along the sigmoid. The sigmoid was passed off as specimen. The pursestring stapler was then placed over the distal aspect of the descending colon and fired. The staple line was then cut off with a 10 blade scalpel. The anvil of the 29 mm powered EEA stapler was then placed into the distal descending colon and the pursestring sutures were tightened and tied. All areas of fatty mesocolon were then taken down from the and well with electrocautery. The EEA was then placed into the anus after that anus and rectum were serially dilated. The anvil was placed into the EEA in the typical fashion and the EEA was fired. There was an audible click. The EEA was then slowly removed. A flexible sigmoidoscopy was then performed and the anastomosis was found to be intact entirely. Normal saline was placed into the abdomen and the rectum and sigmoid were insufflated. No bubbles were seen in the abdomen. I then turned my attention back to the abdomen after regowning. The abdomen was then inspected laparoscopically and saline was suctioned from the abdomen. There was minimal bleeding. No active bleeding was seen. Vistaseal was then placed over the anastomosis. The stomach was then grasped laparoscopically and the NG tube was identified to be in the stomach. The NG tube was fixed into place. The suprapubic incision was then closed with #1 PDS x2 in a running fashion. Skin was washed and dried. Suprapubic incision was closed with 3-0 Vicryl sutures in an interrupted fashion to close the dermis. The skin was closed with 4-0 Monocryl in a subcuticular running fashion. Skin glue was applied. Patient tolerated the procedure well.
[2022-12-22] MEDS: ePHEDrine 50 mg/mL Inj (14:21)
--- NOTE | 2022-12-22 15:11 | ANE.PACU2 ---
Inpatient post-anesthesia follow up: Airway intact: Yes Vital signs: Temperature 98.8 F Pulse Rate 77 Respiratory Rate 17 Blood Pressure 118/69 Pulse Oximetry 97 Oxygen Delivery Me thod Room Air Oxygen Flow Rate 6 Fraction of Inspir ed Oxygen Hydration adequate: Yes Nausea and vomiting: No Pain level: 3 Mental status: Baseline
[2022-12-22] MEDS: sodium chloride 0.9% 1,000 ML 125 ML IV ×2 (15:50→23:38)
[2022-12-22] MEDS: ceFOXitin 2,000 MG in sodium chloride 0.9% (plus) 50 ML 100 MG IV ×2 (16:08→23:10)
[2022-12-22] MEDS: potassium chloride premix 100 ML 25 MEQ IV (17:31)
[2022-12-22] MEDS: pantoprazole 40 mg SDV IVP (21:16)
[2022-12-22] MEDS: heparin 5,000 unit/mL INJ 1 mL 5000 UNIT SUBCUT (21:16)
[2022-12-22] MEDS: HYDROmorphone 1 mg/mL INJ 1 mL IVP (21:20)
[2022-12-23] VITALS (11 sets, daily range): BP systolic 107–121; BP diastolic 60–77; PULSE 48–84; RESP 14–18; TEMP 36.4–37; O2SAT 94–97
[2022-12-23 06:05] LABS: Basophils % 0.1 %; Hematocrit 35.2 % (37.0-47.0); Hemoglobin 11.7 g/dL (11.5-15.3); Lymphocytes # 1.7 10^3/uL (0.8-4.8); Lymphocytes % 15.4 %; Mean Corpuscular HGB Conc 33.2 g/dL (30.0-36.0); Mean Corpuscular Hemoglobin 29.1 pg (28.0-34.0); Mean Corpuscular Volume 87.6 fl (81-99); Mean Platelet Volume 10.4 fL (7.4-10.4); Monocytes # 0.8 10^3/uL (0.2-0.9); Monocytes % 6.8 %; Neutrophils % 77.2 %; Nucleated Red Blood Cells % 0 %; Platelet Count 162 10^3/cmm (130-400); Red Blood Count 4.02 10^6/uL (4.1-5.3); Red Cell Distribution Width 13.2 % (12.1-15.1)
[2022-12-23 06:30] LABS: Anion Gap 14.3 (5-19); Blood Urea Nitrogen 9 mg/dL (6-20); Calcium 8.3 mg/dL (8.5-10.5); Carbon Dioxide 22 mmol/L (22-29); Chloride 109 mmol/L (98-107); Glomerular Filtration Rate 92.7 mL/min (90-130); Glucose 99 mg/dL (65-115); Magnesium 1.7 mg/dL (1.7-2.3); Osmolality Calculated 291 mOsm/kg (285-295); Phosphorus 4.3 mg/dL (2.5-4.5); Potassium 4.3 mmol/L (3.5-5.1); Sodium 141 mmol/L (136-145)
[2022-12-23] MEDS: sodium chloride 0.9% 1,000 ML 125 ML IV ×3 (07:49→23:29)
[2022-12-23] MEDS: heparin 5,000 unit/mL INJ 1 mL 5000 UNIT SUBCUT ×2 (09:48→21:28)
[2022-12-23] MEDS: HYDROmorphone 1 mg/mL INJ 1 mL IVP ×3 (09:49→22:24)
--- NOTE | 2022-12-23 18:02 | PM.PN ---
Subjective Subjective: Patient seen and examined. Pain controlled. Denies nausea, flatus and/or BM Vitals/I&O/Wt Last Vital Signs Temp 98.2 F 12/23/22 16:00 Pulse 81 12/23/22 16:00 Resp 18 12/23/22 16:00 BP 107/67 12/23/22 16:00 Pulse Ox 97 12/23/22 16:00 O2 Del Method Room Air 12/23/22 16:00 O2 Flow Rate 6 12/22/22 14:25 12/23/22 12/23/22 12/23/22 06:59 14:59 22:59 Intake Total 1025 / 2410 950 / 950 931.25 / 1881.25 Output Total 500 / 2375 Balance 525 / 35 950 / 950 931.25 / 1881.25 Physical Exam Narrative: General: No acute distress, awake alert and oriented x3 Abdomen: Soft, moderately distended, appropriately tender to palpation, no guarding rebound or masses Incisions intact without erythema or exudate Urinary Catheter Management: Vega: Cath Placed During This Visit: yes Reason for Continuing Indwelling Catheter: Perioperative Use in Selected Surgeries Urinary Catheter Date of Insertion: 12/21/22 Urinary Catheter Time of Insertion: 11:00 Data 12/23/22 05:50 12/23/22 05:50 A&P Assessment and plan (1) S/P laparoscopic-assisted sigmoidectomy: (2) Sigmoid volvulus: (3) Large bowel obstruction: Plan Pain control IV fluids Incentive spirometer use DC Vega NG tube to low intermittent wall suction Ambulate A.m. labs Await return of bowel function Attestations Medical Necessity Statement*: Patient requires multiple overnights in the hospital for return of bowel function and recovery after sigmoidectomy for sigmoid volvulus Coding Level of Care Code Acute Code for Chg Fwd Diagnoses S/P laparoscopic-assisted sigmoidectomy Z90.49 Sigmoid volvulus K56.2 Large bowel obstruction K56.609
[2022-12-23] MEDS: pantoprazole 40 mg SDV IVP (21:48)
[2022-12-24] VITALS (9 sets, daily range): BP systolic 101–113; BP diastolic 66–71; PULSE 52–67; RESP 15–18; TEMP 36.6–37.1; O2SAT 94–98
[2022-12-24 05:08] LABS: Basophils % 0.2 %; Eosinophils # 0.1 10^3/uL (0.0-0.8); Eosinophils % 1.1 %; Hematocrit 33.7 % (37.0-47.0); Hemoglobin 11.1 g/dL (11.5-15.3); Lymphocytes # 2.7 10^3/uL (0.8-4.8); Lymphocytes % 29.9 %; Mean Corpuscular HGB Conc 32.9 g/dL (30.0-36.0); Mean Corpuscular Hemoglobin 29.1 pg (28.0-34.0); Mean Corpuscular Volume 88.5 fl (81-99); Monocytes # 0.6 10^3/uL (0.2-0.9); Monocytes % 6.5 %; Neutrophils # 5.56 10^3/uL (1.8-7.7); Neutrophils % 61.9 %; Nucleated Red Blood Cells % 0 %; Platelet Count 141 10^3/cmm (130-400); Red Blood Count 3.81 10^6/uL (4.1-5.3); Red Cell Distribution Width 13.2 % (12.1-15.1)
[2022-12-24 05:35] LABS: Anion Gap 14.6 (5-19); Blood Urea Nitrogen 12 mg/dL (6-20); Calcium 8.3 mg/dL (8.5-10.5); Carbon Dioxide 23 mmol/L (22-29); Chloride 103 mmol/L (98-107); Glomerular Filtration Rate 92.7 mL/min (90-130); Glucose 83 mg/dL (65-115); Magnesium 1.7 mg/dL (1.7-2.3); Osmolality Calculated 283 mOsm/kg (285-295); Phosphorus 2.1 mg/dL (2.5-4.5); Potassium 3.6 mmol/L (3.5-5.1); Sodium 137 mmol/L (136-145)
[2022-12-24] MEDS: levothyroxine 50 mcg Tablet PO (06:51)
[2022-12-24] MEDS: heparin 5,000 unit/mL INJ 1 mL 5000 UNIT SUBCUT ×2 (12:41→20:35)
[2022-12-24] MEDS: sodium chloride 0.9% 1,000 ML 125 ML IV (13:17)
--- NOTE | 2022-12-24 13:27 | PM.PN ---
Subjective Subjective: Patient seen and examined. Pain controlled. Denies nausea, flatus and/or BM. Pulling 2500 cc on incentive spirometer Vitals/I&O/Wt Last Vital Signs Temp 98.4 F 12/24/22 04:00 Pulse 66 12/24/22 06:00 Resp 15 12/24/22 04:00 BP 101/66 12/24/22 04:00 Pulse Ox 96 12/24/22 04:00 O2 Del Method Room Air 12/24/22 04:00 O2 Flow Rate 6 12/22/22 14:25 12/23/22 12/24/22 12/24/22 22:59 06:59 14:59 Intake Total 931.25 / 1881.25 1675 / 3556.25 0 / 0 Output Total 350 / 350 Balance 931.25 / 1881.25 1325 / 3206.25 0 / 0 Physical Exam Narrative: General: No acute distress, awake alert and oriented x3 Abdomen: Soft, moderately distended, appropriately tender to palpation, no guarding rebound or masses Incisions intact without erythema or exudate Urinary Catheter Management: Vega: Cath Placed During This Visit: yes Reason for Continuing Indwelling Catheter: Perioperative Use in Selected Surgeries Urinary Catheter Date of Insertion: 12/21/22 Urinary Catheter Time of Insertion: 11:00 Data 12/24/22 04:55 12/24/22 04:55 A&P Assessment and plan (1) S/P laparoscopic-assisted sigmoidectomy: (2) Sigmoid volvulus: (3) Large bowel obstruction: Plan Postoperative day #2 status post laparoscopic sigmoidectomy for sigmoid volvulus Pain control IV fluids Incentive spirometer use NG tube to low intermittent wall suction Ambulate A.m. labs Await return of bowel function Attestations Medical Necessity Statement*: Patient requires multiple overnights in the hospital for return of bowel function and recovery after sigmoidectomy for sigmoid volvulus Coding Level of Care Code Acute Code for Chg Fwd Diagnoses S/P laparoscopic-assisted sigmoidectomy Z90.49 Sigmoid volvulus K56.2 Large bowel obstruction K56.609
[2022-12-24] MEDS: pantoprazole 40 mg SDV IVP (20:53)
[2022-12-24] MEDS: HYDROmorphone 1 mg/mL INJ 1 mL IVP (20:53)
[2022-12-25] MEDS: sodium chloride 0.9% 1,000 ML 125 ML IV (01:59)
[2022-12-25 04:00] VITALS: BP 107/70; PULSE 60; RESP 16; TEMP 36.9; O2SAT 96
[2022-12-25 05:39] LABS: Basophils % 0.3 %; Eosinophils # 0.2 10^3/uL (0.0-0.8); Eosinophils % 2.8 %; Hematocrit 33.5 % (37.0-47.0); Lymphocytes # 2.9 10^3/uL (0.8-4.8); Lymphocytes % 38.6 %; Mean Corpuscular HGB Conc 32.8 g/dL (30.0-36.0); Mean Corpuscular Hemoglobin 28.6 pg (28.0-34.0); Mean Corpuscular Volume 87.2 fl (81-99); Mean Platelet Volume 10.5 fL (7.4-10.4); Monocytes # 0.6 10^3/uL (0.2-0.9); Monocytes % 7.3 %; Neutrophils # 3.83 10^3/uL (1.8-7.7); Neutrophils % 50.6 %; Nucleated Red Blood Cells % 0 %; Platelet Count 152 10^3/cmm (130-400); Red Blood Count 3.84 10^6/uL (4.1-5.3); Red Cell Distribution Width 13.1 % (12.1-15.1); White Blood Count 7.6 10^3/uL (4.0-10.0)
[2022-12-25 06:00] VITALS: PULSE 43
[2022-12-25 06:05] LABS: Anion Gap 14.6 (5-19); Blood Urea Nitrogen 12 mg/dL (6-20); Calcium 8.3 mg/dL (8.5-10.5); Carbon Dioxide 22 mmol/L (22-29); Chloride 107 mmol/L (98-107); Glomerular Filtration Rate 92.7 mL/min (90-130); Glucose 85 mg/dL (65-115); Magnesium 1.8 mg/dL (1.7-2.3); Osmolality Calculated 289 mOsm/kg (285-295); Phosphorus 3.3 mg/dL (2.5-4.5); Potassium 3.6 mmol/L (3.5-5.1); Sodium 140 mmol/L (136-145)
[2022-12-25 07:47] VITALS: BP 113/74; PULSE 50; RESP 17; TEMP 36.6; O2SAT 97
--- NOTE | 2022-12-25 08:45 | PM.PN ---
Subjective Subjective: Patient seen and examined. She passed flatus yesterday so her NG tube was removed and she started on clear liquids. She is tolerating clear liquid diet. Positive flatus no BM yet Vitals/I&O/Wt Last Vital Signs Temp 97.8 F 12/25/22 07:47 Pulse 50 L 12/25/22 07:47 Resp 17 12/25/22 07:47 BP 113/74 12/25/22 07:47 Pulse Ox 97 12/25/22 07:47 O2 Del Method Room Air 12/25/22 07:47 O2 Flow Rate 6 12/22/22 14:25 12/24/22 12/25/22 12/25/22 22:59 06:59 14:59 Intake Total 1879 Balance 1879 Physical Exam Narrative: General: No acute distress, awake alert and oriented x3 Abdomen: Soft, moderately distended, appropriately tender to palpation, no guarding rebound or masses Incisions intact without erythema or exudate Urinary Catheter Management: Vega: Cath Placed During This Visit: yes Reason for Continuing Indwelling Catheter: Perioperative Use in Selected Surgeries Urinary Catheter Date of Insertion: 12/21/22 Urinary Catheter Time of Insertion: 11:00 Data 12/25/22 05:19 12/25/22 05:19 A&P Assessment and plan (1) S/P laparoscopic-assisted sigmoidectomy: (2) Sigmoid volvulus: (3) Large bowel obstruction: Plan Postoperative day #3 status post laparoscopic sigmoidectomy for sigmoid volvulus Pain control Saline lock Full liquid diet Incentive spirometer use Ambulate A.m. labs Await return of bowel function Attestations Medical Necessity Statement*: Patient requires at least 1 more night in the hospital for return of bowel function and recovery after sigmoidectomy for sigmoid volvulus Coding Level of Care Code Acute Code for Chg Fwd Diagnoses S/P laparoscopic-assisted sigmoidectomy Z90.49 Sigmoid volvulus K56.2 Large bowel obstruction K56.609
--- NOTE | 2022-12-25 11:32 | P.DS_ITS ---
Discharge Providers Date of Admission: 12/20/22 22:48 Date of Discharge: December 25, 2022 Attending Provider at Admission: Clyde Cobb DO Attending Provider at Discharge: Clyde Cobb DO Primary Care Provider: Yamel Velazquez MD Diagnoses at Discharge Discharge Diagnosis (1) S/P laparoscopic-assisted sigmoidectomy: Status: Acute (2) Sigmoid volvulus: Status: Acute (3) Large bowel obstruction: Status: Acute Reason for Visit Reason for Visit: abd pain sent by PCP Hospital Course Hospital Course This very pleasant 42-year-old female who presented to the hospital with abdominal pain and distention. She was diagnosed with a sigmoid volvulus. She underwent decompression via sigmoidoscopy. She then took a bowel prep and underwent a laparoscopic sigmoidectomy. She did well postoperatively and was having bowel movements and tolerating a regular diet upon discharge on postoperative day #3. Physical Exam Narrative: General : Patient is well developed , no acute distress, oriented x3 Head : Normal cephalic, a-traumatic. Ears : Pinnae and external canal are normal. Hearing is normal. Eyes : PERRLA, Sclera and injection are normal. No conjunctival discharge. Nose : Mucous membranes are without erythema. Throat : buccal mucosa is normal, gums are without significant recession or hypertrophy. Lungs : Equal chest rise bilaterally, no use of accessory muscles, trachea is midline. Cor : Rate and rhythm are normal. Abdomen : Soft, ND, appropriately tender, no g/r/m Incisions intact without erythema or exudate Extremities : No edema, no cyanosis or clubbing, dorsalis pedis pulses are present bilaterally, non-tender to palpation of calves. Upper extremities are normal bilaterally. Back : non-tender to palpation, no CVA tenderness. Neuro : CN II - XII intact, Upper and lower extremities have equal and full strength Urinary Catheter Management: Vega: Cath Placed During This Visit: yes Reason for Continuing Indwelling Catheter: Perioperative Use in Selected Surgeries Urinary Catheter Date of Insertion: 12/21/22 Urinary Catheter Time of Insertion: 11:00 Discharge Data Studies Completed and Pending Completed Studies During Hospitalization Category Date Time Status CT abdomen pelvis w con* [id number] Stat Cat Scan 12/20/22 18:25 Completed XR acute abdomen series [id number] Routine Exams 12/21/22 05:13 Completed XR acute abdomen series [id number] Stat Exams 12/21/22 16:59 Completed Pending at discharge Category Date Time Status BMP [Basic Metabolic Panel] AM LABS Lab 12/26/22 04:00 Ordered CBC Auto Diff [Complete Blood Count w/Auto] AM LABS Lab 12/26/22 04:00 Ordered Magnesium AM LABS Lab 12/26/22 04:00 Ordered Phosphorus AM LABS Lab 12/26/22 04:00 Ordered Pathology: Surgical [PTH] Stat Pth 12/22/22 13:47 Received Radiology Impressions Abdomen/Pelvis CT 12/20/22 18:25 IMPRESSION: 1. Findings suggestive of internal hernia/sigmoid volvulus with probable resultant early versus partial large bowel obstruction, as described above. No bowel wall thickening or pneumatosis. 2. Additional findings, as above. COMMENTS: Consistent with the [employer]'s Incidental Findings Committee white paper (J Am Maulik Radiol 2018): Any incidental renal lesion less than 1 cm or classified as too small to characterize, or any incidental cystic renal lesion characterized as simple-appearing, is likely benign. No follow-up imaging is recommended for these lesions per consensus recommendations based on imaging criteria. ADDENDUM: 12/20/221938 ADDENDUM: THIS REPORT CONTAINS FINDINGS THAT MAY BE CRITICAL TO PATIENT CARE. As of 7:36 PM CDT on 12/20/2022, KANDI DIEHL confirmed receipt of the exam report, is aware of the critical finding and indicated no conference call was necessary to discussed the exam findings. Chest/Abdomen X-ray 12/21/22 16:59 IMPRESSION: 1. No evidence for bowel obstruction or perforation. 2. No acute cardiopulmonary process. 3. There is an intrauterine device in the pelvis. Laboratory Results WBC 7.6 10^3/uL (4.0-10.0) 12/25/22 05:19 RBC 3.84 10^6/uL (4.1-5.3) L 12/25/22 05:19 Hgb 11.0 g/dL (11.5-15.3) L 12/25/22 05:19 Hct 33.5 % (37.0-47.0) L 12/25/22 05:19 MCV 87.2 fl (81-99) 12/25/22 05:19 MCH 28.6 pg (28.0-34.0) 12/25/22 05:19 MCHC 32.8 g/dL (30.0-36.0) 12/25/22 05:19 RDW 13.1 % (12.1-15.1) 12/25/22 05:19 Plt Count 152 10^3/cmm (130-400) 12/25/22 05:19 MPV 10.5 fL (7.4-10.4) H 12/25/22 05:19 Neut % (Auto) 50.6 % 12/25/22 05:19 Lymph % (Auto) 38.6 % 12/25/22 05:19 [place] % (Auto) 7.3 % 12/25/22 05:19 Eos % (Auto) 2.8 % 12/25/22 05:19 Baso % (Auto) 0.3 % 12/25/22 05:19 Neut # (Auto) 3.83 10^3/uL (1.8-7.7) 12/25/22 05:19 Lymph # (Auto) 2.9 10^3/uL (0.8-4.8) 12/25/22 05:19 [place] # (Auto) 0.6 10^3/uL (0.2-0.9) 12/25/22 05:19 Eos # (Auto) 0.2 10^3/uL (0.0-0.8) 12/25/22 05:19 Baso # (Auto) 0.0 10^3/uL (0.0-0.1) 12/25/22 05:19 Nucleated RBC % (auto) 0 % 12/25/22 05:19 Nucleated RBCs # 0.0 /100WBC 12/25/22 05:19 Sodium 140 mmol/L (136-145) 12/25/22 05:19 Potassium 3.6 mmol/L (3.5-5.1) 12/25/22 05:19 Chloride 107 mmol/L (98-107) 12/25/22 05:19 Carbon Dioxide 22 mmol/L (22-29) 12/25/22 05:19 Anion Gap 14.6 (5-19) 12/25/22 05:19 BUN 12 mg/dL (6-20) 12/25/22 05:19 Creatinine 0.7 mg/dL (0.5-0.9) 12/25/22 05:19 GFR Calculation 92.7 mL/min (90-130) 12/25/22 05:19 Glucose 85 mg/dL (65-115) 12/25/22 05:19 Calculated Osmolality 289 mOsm/kg (285-295) 12/25/22 05:19 Calcium 8.3 mg/dL (8.5-10.5) L 12/25/22 05:19 Phosphorus 3.3 mg/dL (2.5-4.5) 12/25/22 05:19 Magnesium 1.8 mg/dL (1.7-2.3) 12/25/22 05:19 Total Bilirubin 0.5 mg/dL (0.15-1.2) 12/20/22 17:11 AST 15 U/L (0-32) 12/20/22 17:11 ALT 10 U/L (0-33) 12/20/22 17:11 Alkaline Phosphatase 79 U/L (35-105) 12/20/22 17:11 Total Protein 7.6 g/dL (6.6-8.7) 12/20/22 17:11 Albumin 4.8 g/dL (3.5-5.2) 12/20/22 17:11 Globulin 2.8 g/dL (1.3-4.6) 12/20/22 17:11 Lipase 9 U/L (13-60) L 12/20/22 17:11 HCG, Qual Negative (Negative) 12/20/22 17:11 Urine Color Yellow (Yellow) 12/20/22 18:14 Urine Appearance Clear (CLEAR) 12/20/22 18:14 Urine pH 5 (5-7) 12/20/22 18:14 Ur Specific Divide 1.010 (1.005-1.030) 12/20/22 18:14 Urine Protein Neg (Negative) 12/20/22 18:14 Urine Glucose (UA) Norm (Normal) 12/20/22 18:14 Urine Ketones Negative (Negative) 12/20/22 18:14 Urine Blood Neg (Negative) 12/20/22 18:14 Urine Nitrate Negative (Negative) 12/20/22 18:14 Urine Bilirubin Neg (Negative) 12/20/22 18:14 Urine Urobilinogen Neg mg/dL (Negative) 12/20/22 18:14 Ur Leukocyte Esterase Negative (Negative) 12/20/22 18:14 Procedures Performed Sigmoidoscopy for decompression Laparoscopic sigmoidectomy Vitals Last Vital Signs Temp 97.8 F 12/25/22 07:47 Pulse 50 L 12/25/22 07:47 Resp 17 12/25/22 07:47 BP 113/74 12/25/22 07:47 Pulse Ox 97 12/25/22 07:47 O2 Del Method Room Air 12/25/22 07:47 O2 Flow Rate 6 12/22/22 14:25 Discharge Plan Discharge Patient Disposition: Home Condition: Stable Prescriptions: New oxycodone-acetaminophen 5-325 mg tablet 1 tab PO Q6H PRN (Reason: pain) Qty: 20 0RF DOK 100 mg capsule 100 mg PO BID Qty: 14 0RF Continued Mirena 20 mcg/24 hours (7 yrs) 52 mg intrauterine device 1 insert intrauterine .every 6 years Qty: 1 0RF levothyroxine 50 mcg tablet See Rx Instructions .ROUTE .COMPLEX Qty: 90 1RF Dose Instruction: TAKE 1 TABLET BY MOUTH EVERY DAY IN THE MORNING 30 MINUTES PRIOR TO BREAKFAST, TAKE WITH WATER ONLY Rx Instructions: TAKE 1 TABLET BY MOUTH EVERY DAY IN THE MORNING 30 MINUTES PRIOR TO BREAKFAST, TAKE WITH WATER ONLY Discharge Orders: Discharge Order (Routine); Ordered 12/25/22 Ordered By: Clyde Cobb Referrals: Yamel Velazquez MD [Primary Care Provider] - 4-7 days Clyde Cobb DO [Physician] - 2 weeks Discharge Diet: Advance as tolerated Discharge Activity: Resume usual activity and Limit activity as instructed Patient Instructions: Opioid Safety Activity Restrictions/Additional Instructions: No lifting, pushing or pulling over 15 pounds for 6 weeks. Do not soak incisions underwater for 2 weeks. Shower daily. Let the glue fall off on its own. Discharge Attestations Time Spent in Discharge Care*: less than 30 min Quality Metrics Clinical Quality Measures [ No reported AMI, CVA or VTE this stay] Coding Level of Care Code Acute Code for Chg Fwd Diagnoses S/P laparoscopic-assisted sigmoidectomy Z90.49 Sigmoid volvulus K56.2 Large bowel obstruction K56.609
[2022-12-25 11:34] VITALS: BP 113/75; PULSE 65; RESP 18; TEMP 36.4; O2SAT 97
== END 2022-12-25 14:03 | disposition home or self-care (01) | DRG 331 ==
LOC: ER 18:17 → GILAB 21:03 → MEDSURG 22:48
PROVIDERS: Family Medicine; Admitting Provider Surgery; Emergency Provider Nurse Practitioner Family; PCP Internal Medicine; Visit Provider Surgery
PROC: 0DJD8ZZ Inspection of Lower Intestinal Tract, Via Natural or Artificial Opening Endoscopic (ICD-10-PCS; CPT 45378; principal; 2022-12-20 22:00)
PROC: 0DTN4ZZ Resection of Sigmoid Colon, Percutaneous Endoscopic Approach (ICD-10-PCS; CPT 44204; principal; 2022-12-22 11:00)
PROC: 0DJD8ZZ Inspection of Lower Intestinal Tract, Via Natural or Artificial Opening Endoscopic (ICD-10-PCS; CPT 45378; 2022-12-22 11:00)
DX: K56.2 Volvulus (principal); E03.9 Hypothyroidism, unspecified
CPT/HCPCS: 36415; 51702; 74022; 74177; 80048; 80053; 81003; 83690; 83735; 84100; 84703; 85025; 88309; 96372; 99285; C9113; J0330; J0694; J1100; J1170; J1200; J1644; J2250; J2270; J2405; J2543; J2704; J2710; J3010; J3480; J3490; J7030; Q9967

== ENCOUNTER → 2023-01-10 14:07 | Outpatient (BNVA) | payer OTHER, SELFPAY | PROVIDERS: PCP Internal Medicine; Visit Provider Surgery | DX: Z98.890 Other specified postprocedural states (principal); Z90.49 Acquired absence of other specified parts of digestive tract | CPT/HCPCS: 99024 ==